=== PATIENT | male | born 1950 | race African-American/Black ===

== ENCOUNTER 2024-11-25 17:27 | Inpatient (IN) | payer MEDICARE, MEDICAID, SELFPAY ==
[2024-11-25] VITALS (10 sets, daily range): BP systolic 71–108; BP diastolic 41–67; PULSE 58–105; RESP 16–18; TEMP 36.4–36.8; O2SAT 98–100; BMI 21.3
--- NOTE | ~2024-11-25 | CT_ITS ---
CLINICAL HISTORY: unexplained persis hypotension, poor urine output CT abdomen and pelvis with contrast Comparison: None Findings: CT abdomen: Please refer to the patient's separately dictated CT of the chest for information regarding infiltrates within the lingula and bilateral lower lobes. 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 No other fractures identified. Scattered hypodensities within the liver likely calcification measuring up to 9 mm in size. No solid hepatic mass lesion identified. Main portal vein is patent. Innumerable calcified granulomas within the spleen. No discrete pancreatic mass is seen. Adrenal glands and kidneys are unremarkable for acute findings. Moderate fluid distention of the stomach. Hyperenhancement of the gastric mucosa. Fluid-filled loops of small bowel are seen throughout the abdomen and pelvis, especially within the left midabdomen. No free air. CT pelvis: No findings of appendicitis. Moderate stool throughout the colon. No colonic wall thickening or pericolonic inflammatory stranding. No free fluid or free air. IMPRESSION: 1. Negative CT of the appendix. 2. Fluid distention of the stomach with fluid-filled loops of small bowel are frequently seen with infectious/inflammatory gastroenteritis. This document has been electronically signed by: Gavino Fernández MD on 11/26/2024 01:48:48
--- NOTE | ~2024-11-25 | US_ITS ---
EXAMINATION: BILATERAL CAROTID ULTRASOUND WITH DOPPLER HISTORY: Syncope COMPARISON: There are no prior studies available for comparison. TECHNIQUE: Real time and Color and Spectral doppler ultrasonography of the carotid and vertebral arteries was performed in multiple planes. FINDINGS: Significant plaque is identified. The technologist reported and an arrhythmia. VERTEBRAL FLOW DIRECTION: Antegrade bilaterally. PEAK SYSTOLIC VELOCITIES (in cm/sec): RIGHT: CCA: Prox: 63.4 Dist: 32.9 ICA: Prox: 21.1 Mid: 45.0 Dist: 43.2 ICA/CCA Ratio: 0.71 ECA: 23.7 Peak ICA end diastolic velocity (EDV): 20.6 LEFT: CCA: Prox: 60.9 Dist: 41.3 ICA: Prox: 16.9 Mid: 47.8 Dist: 79.0 ICA/CCA Ratio: 1.30 ECA: 20.8 Peak ICA end diastolic velocity (EDV): 36.0 US/US carotid duplex BI IMPRESSION: Possible cardiac arrhythmia. Correlation with EKG is recommended. Unremarkable ultrasound of the carotid arteries. Electronically signed by: Fabrizio Pollard MD 11/26/2024 08:26 AM EDT
--- NOTE | ~2024-11-25 | CT_ITS ---
CLINICAL HISTORY: Unexplained hypotension, hx of PEs CT angiography chest with contrast. MIP postprocessing. Comparison: CR - XR CHEST 1V - 11/25/24 17:40 EDT Findings: There is appropriate contrast opacification of the main, lobar, and segmental pulmonary arteries. No filling defects identified to suggest pulmonary embolism. Thoracic aorta is nonaneurysmal. Mild mcdaniel chamber cardiac dilation. No pathologically enlarged mediastinal, hilar, or axillary lymph nodes. There are areas of consolidation within the dependent portion of the lingula and within the lower lobes bilaterally, [id number]. No pleural effusion or pneumothorax. 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 No acute bony lesions. IMPRESSION: 1. No pulmonary embolus. 2. No acute infiltrate. This document has been electronically signed by: Gavino Fernández MD on 11/26/2024 01:45:22
--- NOTE | ~2024-11-25 | XR_ITS ---
CLINICAL HISTORY: loc 1 view chest x-ray Comparison: None Findings: The lungs are clear. Normal size heart. No acute fracture. IMPRESSION: 1. No acute findings. This document has been electronically signed by: Brodie Cutler MD on 11/25/2024 18:09:39
--- NOTE | 2024-11-25 17:36 | ECG_ITS ---
Test Reason : SYNCOPE Blood Pressure : */* mmHG Vent. Rate : 106 BPM Atrial Rate : 106 BPM P-R Int : 130 ms QRS Dur : 154 ms QT Int : 406 ms P-R-T Axes : * -28 143 degrees QTcB Int : 539 ms Sinus tachycardia Left bundle branch block Abnormal ECG No previous ECGs available Referred By: Marilynn Liz Electronically Signed By: STEPHANIE CALI MD
--- NOTE | 2024-11-25 18:07 | ED.SYNCOPE ---
HPI - Syncope General Chief Complaint: Syncope Stated Complaint: from snf, loc during bowel movement, awake now Time Seen by Provider: 11/25/24 17:38 Source: patient and EMS Mode of arrival: EMS Limitations: no limitations History of Present Illness ED Provider: sloan durán np HPI narrative: Patient is a 74 year old male who presents emergency department via EMS coming from [facility] at [place] for evaluation of a syncopal episode while having a bowel movement witnessed by staff at the facility He is pleaseantly confused, answering some questions appropriately, follows some commands correctly. Per staff to EMS his mentation is currently at baseline. He arrives hypotensive 86/41, initial nursing vital signs indicate a bradycardia of 58, however on telemetry as well as on ECG he is mildly tachycardic with rate 100-110. Patient denies headache, dizziness, chest pain, shortness of breath, nausea, vomiting,, numbness or tingling of the extremities, constipation, recent diarrhea, urinary symptoms Related Data Home Medications ?Medication ?Instructions ?Recorded ?Confirmed acetaminophen 325 mg tablet 650 mg PO Q6H PRN Pain 11/26/24 11/26/24 albuterol sulfate 90 mcg/actuation 2 puff inhalation Q4H PRN 11/26/24 11/26/24 aerosol inhaler Shortness Of Breath Or Wheezing apixaban 5 mg tablet (Eliquis) 5 mg PO BID 11/26/24 11/26/24 bisacodyl 10 mg rectal suppository 10 mg ID DAILY PRN Constipation 11/26/24 11/26/24 digoxin 125 mcg (0.125 mg) tablet 125 mcg PO DAILY 11/26/24 11/26/24 magnesium hydroxide 400 mg/5 mL 30 ml PO DAILY PRN Constipation 11/26/24 11/26/24 oral suspension (Milk of Magnesia) metoprolol succinate 100 mg 100 mg PO DAILY 11/26/24 11/26/24 tablet,extended release 24 hr mirtazapine 15 mg tablet 15 mg PO BEDTIME 11/26/24 11/26/24 polyethylene glycol 3350 17 17 g PO DAILY PRN Constipation 11/26/24 11/26/24 gram/dose oral powder sennosides 8.6 mg tablet (senna) 8.6 mg PO BID 11/26/24 11/26/24 sodium phosphates 19 gram-7 118 ml ID DAILY PRN Constipation 11/26/24 11/26/24 gram/118 mL enema (Fleet Enema) Allergies Allergy/AdvReac Type Severity Reaction Status Date / Time No Known Allergies Allergy Verified 11/25/24 17:42 Review of Systems Review of Systems: Yes all other systems are reviewed and are negative [facility] Past Medical History Attestation statement: The following information was validated with the patient. Source: old records reviewed Medical History (Updated 11/26/24 @ 04:15 by KENDAL Newton) Homelessness Unexplained weight loss Femoral vein, deep venous thrombosis Left ventricular mural thrombus Pulmonary embolism Syncope Hypotension Cardiomyopathy, nonischemic Atrial flutter Diabetes 1.5, managed as type 2 Social History Social History (Updated 11/26/24 @ 04:17 by KENDAL Newton) Patient Tobacco Use Status: Former Tobacco user Smoked in Last 30 Days: Yes Use of substances other than those prescribed or required for medical reasons: No Advance Directives: No Advance Directives Information Provided: Yes Recently lost weight without trying: Yes How much weight loss: 34pounds or more Nutrition Risks: Dental problems Visits dentist regularly: No Poor oral hygiene: Yes service: No Current occupational status: retired Cognitive needs: Yes Hearing needs: No Vision needs: No Physical Exam Vital Signs: Vital Signs: Last Vital Signs Temp 97.8 F 11/26/24 06:38 Pulse 69 11/26/24 06:38 Resp 17 11/26/24 06:38 BP 111/91 H 11/26/24 06:38 Pulse Ox 99 11/26/24 06:38 O2 Del Method Room Air 11/26/24 06:38 BMI result Body Mass Index 21.3 Appearance: Alert.? Oriented to person Disoriented to place and time. No acute distress.?Normal affect. Eyes: Pupils equal, round and reactive to light. Scleral icterus.? EOMI. No nystagmus. ENT: Pharynx normal.?? Neck: Normal inspection.? Neck supple.??Full range of motion. No rigidity. CVS: Heart sounds normal. Normal heart rate and rhythm.? Pulses normal.?? Respiratory: No respiratory distress.? Lung sounds clear to auscultation bilaterally?? Abdomen: Soft and non-tender. Normoactive bowel sounds. Skin: Skin warm and dry.? Normal skin color.? ? Extremities: No lower extremity edema.? Neuro: Moves all extremities spontaneously. Course Reevaluation(s) Reevaluation #1: After receiving IV fluids, BP maintaining at 88/53 pulse of 100 he is afebrile, no respiratory distress. CBC is without leukocytosis, has a mild normocytic anemia that does not meet transfusion criteria, no thrombocytopenia. No significant electrolyte derangement. No MATTHEW. Lactic acid has resulted at 3.0, sepsis bolus occlusion fallen completed secondary to history of ischemic cardiomyopathy with low EF. LFTs unremarkable. High sensitive troponin within normal range. Viral serologies are negative. Chest x-ray without evidence of pneumonia or pleural effusions. Urinalysis is pending at this time. Digoxin level is pending. Repeat lactic acid is pending. Patient will be signed out to my attending Dr. Medina Time: 20:51 Reevaluation #2: Dr. Medina: I assumed care of this patient at change of shift from the nurse practitioner. The patient is a 74-year-old male who has been living at [facility] nursing [facility] for about a month after several hospitalizations at [facility]. Most of those hospitalizations were for hypotension. He has a nonischemic cardiomyopathy with a poor ejection fraction and atrial flutter. We were unable to get any significant information from [facility] regarding his baseline blood pressures or just about anything else about his stay at the facility. The patient's digoxin level is undetectable which raises a question of whether he is receiving this medication. In any event the patient was here after a syncopal episode that occurred when he was having a bowel movement. This was a witnessed episode. Staff was standing by and there was no injury. He was hypotensive. He was hypotensive here but he had no complaints. He looked quite well other than his low blood pressures. He denies headache, chest pain, abdominal pain, or any other symptoms. Although there is no complaint to suggest an infectious process and although he was not febrile, given his hypotension blood cultures, and a lactate, an empiric antibiotics were given. His lactate was 3.0. He received Zosyn and IV fluids. A repeat lactate was normal. He does not have an elevated white blood count. He has a an only mildly elevated CRP. The patient was observed over a course of several hours and ultimately we also obtained a CT pulmonary angiogram and a CT of the abdomen and pelvis. There was no pulmonary embolism. The CT of the chest suggested some areas of consolidation but the overall report indicated no acute infiltrate. No septic process in the abdomen. The patient was given IV fluids for borderline low blood pressures over many hours.. Ultimately the patient's blood pressure seemed to stabilize. Given that he was having problems with hypotension at [facility] and given that his blood pressures has been low but he has seemed otherwise asymptomatic I have also given him a dose of midodrine. He will be admitted to the hospitalist service. Medications Administered Generic Name Dose Route Start Last Admin Trade Name Freq PRN Reason Stop Dose Admin Enoxaparin Sodium 40 mg 11/26/24 03:00 11/26/24 03:37 Enoxaparin Sodium 40 Mg/0.4 Ml Syringe SUBCUT 40 mg Q24H SVETA Administration Piperacillin Sod/Tazobactam 100 mls @ 200 mls/hr 11/26/24 03:00 11/26/24 04:40 Sod 4.5 gm/ Sodium Chloride IV Infused Q8H SVETA Infusion Insulin Human Lispro 0 unit 11/26/24 07:30 11/26/24 08:09 Insulin Lispro 100 Unit/Ml 3 Ml Vial SUBCUT Not Given QIDACHS [facility] Protocol Omeprazole 20 mg 11/26/24 06:30 11/26/24 06:26 Omeprazole 20 Mg Capsule.Dr PO 20 mg DAILY@0630 SVETA Administration Sodium Chloride 3 ml 11/26/24 08:00 11/26/24 07:58 0.9 % Sodium Chloride Flush 3 Ml Syringe IVFLUSH 3 ml QSHIFT SVETA Administration Discontinued Medications Generic Name Dose Route Start Last Admin Trade Name Freq PRN Reason Stop Dose Admin Piperacillin Sod/Tazobactam 100 mls @ 200 mls/hr 11/25/24 18:14 11/25/24 19:28 Sod 4.5 gm/ Sodium Chloride IV 11/25/24 18:43 Infused ONCE ONE Infusion Sodium Chloride 500 mls @ 999 mls/hr 11/25/24 19:15 11/25/24 19:43 Ns IV 11/25/24 19:45 Infused .Q31M SVETA Infusion Lactated Ringer's 1,000 mls @ 999 mls/hr 11/25/24 21:30 11/25/24 23:05 Lr IV 11/25/24 22:30 Infused .Q1H1M SVETA Infusion Lactated Ringer's 500 mls @ 999 mls/hr 11/25/24 23:30 11/26/24 00:23 Lr IV 11/26/24 00:00 Infused .Q31M SVETA Infusion Lactated Ringer's 500 mls @ 999 mls/hr 11/26/24 02:45 11/26/24 03:36 Lr IV 11/26/24 03:15 Infused .Q31M SVETA Infusion Magnesium Sulfate 2 gm in 50 mls @ 25 mls/hr 11/26/24 03:55 11/26/24 06:27 Magnesium Sulfate/H2o IV 11/26/24 05:54 Infused ONCE ONE Infusion Iohexol 85 ml 11/26/24 00:55 11/26/24 00:56 Iohexol 350 Mg/Ml 100 Ml Infus..Btl IV 11/26/24 00:56 85 ml ONCE ONE Administration Midodrine 10 mg 11/26/24 02:46 11/26/24 03:36 Midodrine Hcl 10 Mg Tablet PO 11/26/24 02:47 10 mg ONCE ONE Administration Medical Decision Making Medical Decision Making MDM Narrative: Patient is a 74 year old male with past medical history of atrial flutter, nonischemic cardiomyopathy with LVEF 10-15%, LV thrombus, pulmonary embolism, DVT anticoagulated on Eliquis, hypertension, hyperlipidemia, diabetes mellitus, COPD who presents emergency department from [facility] for syncope during episode of bowel movement as per HPI. He has a grossly negative review of symptoms when asked, he offers no physical complaints, he is disoriented to place and time. I discussed this case with my attending Dr. Maureen Yoon, expressing concern for his hypotension tachycardia, there was no overt sign of infectious etiology however will obtain blood cultures and lactic acid, was prophylactic antibiotics. Patient did receive 500 mL normal saline pre-hospital, had concern about administering additional IVF given history of cardiomyopathy, and advisement from my attending Dr. Medina, patient will receive an additional 500 mL normal saline. Will obtain CBC to evaluate for leukocytosis/ anemia, CMP and lipase to evaluate for abnormal electrolytes /abnormal renal function/ abnormal hepatic/biliary function, EKG and troponin to evaluate for ischemia/ACS. Chest x-ray to evaluate for consolidation/ infiltrate/ mass/ pulmonary congestion and Urinalysis. [facility], admission 10/15/2024-10/27/2024 - presented there for presumed syncope EMS found him to be diaphoretic arrived to their ED tachycardic and hypoglycemic EKG with atrial flutter underlying left bundle-branch block, prior echocardiogram indicating severe biventricular dysfunction with evidence of a cold thrombus moderate to severe mitral regurgitation and moderate to severe tricuspid regurgitation with moderate pulmonary arterial hypertension, he was managed with rate control medication, had transitioned him initially from digoxin to amiodarone but due to elevation in transaminases amiodarone discontinued and restarted again on digoxin. He was found during that state she not have capacity to make complex medical decisions, healthcare proxy was invoked. Differential Diagnosis Differential Diagnoses: The differential diagnosis associated with the presentation includes (See narrative above) Admission/Observation Consideration of admission/observation: Escalation of care including admission/observation considered (See narrative above) Lab Data MDM Lab Attestation statement: I reviewed the patient's lab results. (See course narrative) 11/25/24 18:11 11/25/24 18:11 Labs: Lab Results 11/25/24 11/25/24 11/25/24 Range/Units 18:11 18:19 21:28 WBC 8.5 (4.8-10.8) X10*3/uL RBC 3.85 L (4.60-5.80) X10*6/uL Hgb 10.7 L (14.0-18.0) g/dl Hct 33.3 L (42.0-52.0) % MCV 86.5 (80.0-98.0) fL MCH 27.8 (27.0-33.0) pg MCHC 32.1 (31.0-36.0) g/dl RDW 15.9 (11.0-16.0) % Plt Count 221 (160-400) X10*3/uL MPV 9.2 L (9.4-12.4) fL Immature Gran % (Auto) 0.4 (0.0-0.4) % Neut % (Auto) 73.6 H (45-73) % Lymph % (Auto) 19.2 L (20-40) % [place] % (Auto) 5.6 (2-11) % Eos % (Auto) 0.8 (0-4) % Baso % (Auto) 0.4 (0-2) % Lymph # (Auto) 1.6 (1.2-4.9) X10*3/uL [place] # (Auto) 0.5 (0.1-1.2) X10*3/uL Eos # (Auto) 0.1 (0.0-0.4) X10*3/uL Baso # (Auto) 0.0 (0.0-0.2) X10*3/uL Abs Immat Gran (auto) 0.03 (0.00-0.03) X10*3/uL Absolute Neuts (auto) 6.2 (2.0-8.3) x10*3/uL Absolute Nucleated RBC 0.000 (0.0-0.012) X10*3/uL Nucleated RBC % (auto) 0.0 (0.0-0.2) /100WBC PT 19.5 H (10.9-12.4) SEC INR 1.7 H (0.9-1.1) Sodium 139 (135-145) mmol/L Potassium 4.0 (3.3-5.1) mmol/L Chloride 109 H (96-108) mmol/L Carbon Dioxide 23 (22-29) mmol/L Anion Gap 11 L (12-20) BUN 31 H (9-16) mg/dL Creatinine 1.00 (0.5-1.4) mg/dL Estim Creat Clear Calc 67.1 Estimated GFR > 60 Random Glucose 102 (60-115) mg/dL Lactic Acid 3.0 H* (0.5-2.0) mmol/L Lactic Acid F/U @ 2Hr 1.8 (0.5-2.0) mmol/L Calcium 8.6 (8.4-10.2) mg/dL Magnesium 1.7 (1.6-2.6) mg/dL Total Bilirubin 0.7 (0.0-1.0) mg/dL Direct Bilirubin 0.3 (0.0-0.5) mg/dL AST 27 (5-37) U/L ALT 22 (0-40) U/L Alkaline Phosphatase 93 (39-117) U/L Troponin I High Sens 11.5 (<3.5-35.0) ng/L C-Reactive Protein 2.46 H (< or = 0.50) mg/dL Total Protein 5.9 L (6.5-8.0) g/dL Albumin 3.0 L (3.5-5.0) g/dL Lipase 9 (8-78) U/L Urine Color Urine Appearance Urine pH (5.0-9.0) Ur Specific Sunflower (1.005-1.025) Urine Protein (Neg-Trace) mg/dL Urine Glucose (UA) (Negative) mg/dL Urine Ketones (Negative) mg/dL Urine Blood (Negative) Urine Nitrite (Negative) Ur Leukocyte Esterase (Negative) Urine RBC (0-2) /HPF Urine WBC (0-5) /HPF Ur Squamous Epith Cells (0-2) /HPF Urine Bacteria (None Seen) Hyaline Casts (0-2) /LPF Digoxin < 0.2 L (0.8-2.0) ng/mL Influenza Type A (PCR) NEGATIVE (Negative) Influenza Type B (PCR) NEGATIVE (Negative) RSV RNA Qual (PCR) NEGATIVE (Negative) SARS-CoV-2 RNA (RT-PCR) NEGATIVE (Negative) 11/25/24 11/26/24 Range/Units 23:05 02:00 WBC (4.8-10.8) X10*3/uL RBC (4.60-5.80) X10*6/uL Hgb (14.0-18.0) g/dl Hct (42.0-52.0) % MCV (80.0-98.0) fL MCH (27.0-33.0) pg MCHC (31.0-36.0) g/dl RDW (11.0-16.0) % Plt Count (160-400) X10*3/uL MPV (9.4-12.4) fL Immature Gran % (Auto) (0.0-0.4) % Neut % (Auto) (45-73) % Lymph % (Auto) (20-40) % [place] % (Auto) (2-11) % Eos % (Auto) (0-4) % Baso % (Auto) (0-2) % Lymph # (Auto) (1.2-4.9) X10*3/uL [place] # (Auto) (0.1-1.2) X10*3/uL Eos # (Auto) (0.0-0.4) X10*3/uL Baso # (Auto) (0.0-0.2) X10*3/uL Abs Immat Gran (auto) (0.00-0.03) X10*3/uL Absolute Neuts (auto) (2.0-8.3) x10*3/uL Absolute Nucleated RBC (0.0-0.012) X10*3/uL Nucleated RBC % (auto) (0.0-0.2) /100WBC PT (10.9-12.4) SEC INR (0.9-1.1) Sodium (135-145) mmol/L Potassium (3.3-5.1) mmol/L Chloride (96-108) mmol/L Carbon Dioxide (22-29) mmol/L Anion Gap (12-20) BUN (9-16) mg/dL Creatinine (0.5-1.4) mg/dL Estim Creat Clear Calc Estimated GFR Random Glucose (60-115) mg/dL Lactic Acid (0.5-2.0) mmol/L Lactic Acid F/U @ 2Hr (0.5-2.0) mmol/L Calcium (8.4-10.2) mg/dL Magnesium (1.6-2.6) mg/dL Total Bilirubin (0.0-1.0) mg/dL Direct Bilirubin (0.0-0.5) mg/dL AST (5-37) U/L ALT (0-40) U/L Alkaline Phosphatase (39-117) U/L Troponin I High Sens 10.6 (<3.5-35.0) ng/L C-Reactive Protein (< or = 0.50) mg/dL Total Protein (6.5-8.0) g/dL Albumin (3.5-5.0) g/dL Lipase (8-78) U/L Urine Color Dark Yellow Urine Appearance Clear Urine pH 5.5 (5.0-9.0) Ur Specific Sunflower >= 1.030 H (1.005-1.025) Urine Protein 30 (1+) H (Neg-Trace) mg/dL Urine Glucose (UA) Negative (Negative) mg/dL Urine Ketones Trace (Negative) mg/dL Urine Blood Negative (Negative) Urine Nitrite Negative (Negative) Ur Leukocyte Esterase Small (1+) H (Negative) Urine RBC 0-2 (0-2) /HPF Urine WBC 11-20 H (0-5) /HPF Ur Squamous Epith Cells 0-2 (0-2) /HPF Urine Bacteria None Seen (None Seen) Hyaline Casts 3-5 (0-2) /LPF Digoxin (0.8-2.0) ng/mL Influenza Type A (PCR) (Negative) Influenza Type B (PCR) (Negative) RSV RNA Qual (PCR) (Negative) SARS-CoV-2 RNA (RT-PCR) (Negative) Independent Interpretation I performed an independent interpretation of an: EKG (Sinus tachycardia with left bundle-branch block, ventricular rate of 106, normal BHAKTI) Radiology Impression Discussion of test interpretation with radiology: I have reviewed the radiologist's reading. Radiologist Impression: 1 view chest x-ray Comparison: None Findings: The lungs are clear. Normal size heart. No acute fracture. IMPRESSION: 1. No acute findings. Independent Historian Clinical information obtained from an independent historian. History obtained from or confirmed by: EMS External Record Review External record reviewed: Inpatient record (See narrative above) and Outpatient record (See narrative above) Chronic Conditions Patient?s care impacted by: Other (See narrative above) Critical Care Time Critical Care Time Critical Care Time: Yes Total Critical Care Time: 35 Attestation: The patient was critically ill with a high probability of imminent or life-threatening deterioration. ?I spent greater than 30 minutes of discontinuous time evaluating the patient, delivering critical care at the bedside, discussing evaluating data with consultants. ?Critical care time does not include time spent performing separately billable procedures or teaching. ?Time spent performing critical care with 35 minutes. Discharge Plan Discharge Clinical Impression: Syncope, Hypotension, Cardiomyopathy, nonischemic, Atrial flutter Patient Disposition: Admitted As Inpatient Interventions: Admission Worksheet (ED) Last Done: 11/26/24 07:02 Sepsis Bolus Exclusion Sepsis Bolus Exclusion CHF/Renal Failure This patient met severe sepsis criteria due to the following condition(s):: Hypotension In my clinical judgement the administration of 30 ml/kg of crystalloid would be detrimental to this patient due to the patient's following conditions:: Concern for fluid overload (Ischemic cardiomyopathy with EF 10-15%) Replace the 30 mls/kg with (Zero amount not acceptable and all fluids for severe sepsis must be given at GREATER than 125 mls/hr) Crystalloids amount given in mls: (rate must be at least 150cc/hr): 500 Colloids amount given in mls:: 0
[2024-11-25 18:16] LABS: MANUAL DIFF FLAG NO
[2024-11-25 18:18] LABS: Basophils Percent Auto 0.4 % (0-2); Eosinophils Absolute Auto 0.1 X10*3/uL (0.0-0.4); Eosinophils Percent Auto 0.8 % (0-4); Hematocrit 33.3 % (42.0-52.0); Hemoglobin 10.7 g/dl (14.0-18.0); Imm Gran Abs Auto 0.03 X10*3/uL (0.00-0.03); Imm Gran Pct Auto 0.4 % (0.0-0.4); Lymphocytes Absolute Auto 1.6 X10*3/uL (1.2-4.9); Lymphocytes Percent Auto 19.2 % (20-40); Mean Corpuscular HGB Conc 32.1 g/dl (31.0-36.0); Mean Corpuscular Hemoglobin 27.8 pg (27.0-33.0); Mean Corpuscular Volume 86.5 fL (80.0-98.0); Mean Platelet Volume 9.2 fL (9.4-12.4); Monocytes Absolute Auto 0.5 X10*3/uL (0.1-1.2); Monocytes Percent Auto 5.6 % (2-11); Neutrophils Absolute Auto 6.2 x10*3/uL (2.0-8.3); Neutrophils Percent Auto 73.6 % (45-73); Platelet Count 221 X10*3/uL (160-400); Red Blood Count 3.85 X10*6/uL (4.60-5.80); Red Cell Distribution Width 15.9 % (11.0-16.0); White Blood Count 8.5 X10*3/uL (4.8-10.8)
[2024-11-25 18:24] LABS: INTERNATIONAL NORM RATIO 1.7 (0.9-1.1); Prothrombin Time 19.5 SEC (10.9-12.4)
[2024-11-25 18:32] LABS: Alanine Aminotransferase 22 U/L (0-40); Alkaline Phosphatase 93 U/L (39-117); Anion Gap 11 (12-20); Aspartate Amino Transferase 27 U/L (5-37); Bilirubin Direct 0.3 mg/dL (0.0-0.5); Bilirubin Total 0.7 mg/dL (0.0-1.0); Blood Urea Nitrogen 31 mg/dL (9-16); Calcium 8.6 mg/dL (8.4-10.2); Carbon Dioxide 23 mmol/L (22-29); Chloride 109 mmol/L (96-108); Creatinine Clr Calc Pharmacy 67.1; Estimated Glomerular Filt Rate > 60; Glucose Random 102 mg/dL (60-115); Lipase 9 U/L (8-78); Magnesium 1.7 mg/dL (1.6-2.6); Sodium 139 mmol/L (135-145); Total Protein 5.9 g/dL (6.5-8.0)
[2024-11-25 18:39] LABS: Troponin-I High Sensitivity 11.5 ng/L (<3.5-35.0)
[2024-11-25] MEDS: Piperacillin Sodium/Tazobactam 4.5 GM in 0.9 % Sodium Chloride 100 ML IV (18:58)
[2024-11-25 18:59] LABS: Influenza A PCR NEGATIVE (Negative); Influenza B PCR NEGATIVE (Negative); Resp Syncy Virus RNA Qual PCR NEGATIVE (Negative); SARS COV2 PCR INHOUSE NEGATIVE (Negative)
--- NOTE | 2024-11-25 19:00 | PC.NURSE ---
this rn assumed care of pt, at bedside, states to wait on ortho vitals. rectal temp obtained, pressures remain low at this time, provider aware. antibiotics administering at this time
[2024-11-25] MEDS: 0.9 % Sodium Chloride 500 ML 999 ML IV (19:11)
[2024-11-25 19:16] LABS: C Reactive Protein 2.46 mg/dL (< or = 0.50)
[2024-11-25 20:25] LABS: Reflex Lactate? Lactic Acid Added
--- NOTE | 2024-11-25 21:09 | PC.NURSE ---
this rn contacted [facility] at this time, [facility] rn gave last set of vitals prior to fall - 101/81 and HR of 59. Kalia Alfonso aware
[2024-11-25] MEDS: Lactated Ringers 1,000 ML 999 ML IV (21:33)
[2024-11-25 21:48] LABS: Digoxin < 0.2 ng/mL (0.8-2.0); ~Lactic Acid-LAB USE ONLY 1.8 mmol/L (0.5-2.0)
--- NOTE | 2024-11-25 23:09 | PC.NURSE ---
straight cath administered for urine collection. Pt tolerated well. 10 mL output. urine sample sent to lab
[2024-11-25 23:12] LABS: Appearance Urine Clear; Color Urine Dark Yellow; Glucose Urine UA Negative (Negative); Leukocyte Esterase Urine Small (1+) (Negative); Nitrite Urine Negative (Negative); PH 5.5 (5.0-9.0); Specific Gravity - Urine >= 1.030 (1.005-1.025); UMIC TRIGGER UACC YES; Urine Blood Negative (Negative); Urine Ketones Trace mg/dL (Negative); Urine Protein 30 (1+) mg/dL (Neg-Trace)
[2024-11-25] MEDS: Lactated Ringers 500 ML 999 ML IV (23:33)
[2024-11-26] VITALS (22 sets, daily range): BP systolic 68–112; BP diastolic 44–91; PULSE 63–88; RESP 11–20; TEMP 36.4–37.1; O2SAT 93–100; BMI 23.6; BMI 23.2; BMI 23.5
[2024-11-26 00:20] LABS: Bacteria Urine None Seen (None Seen); RBC Urine 0-2 /HPF (0-2); Squamous Epithelial Cell Urine 0-2 /HPF (0-2); UACC Culture Trigger YES
[2024-11-26] MEDS: iohexoL 350 MG/ML 100 ML INFUS..BTL 85 ML IV (00:56)
[2024-11-26 02:27] LABS: Troponin-I High Sensitivity 10.6 ng/L (<3.5-35.0)
[2024-11-26] MEDS: Lactated Ringers 500 ML 999 ML IV ×2 (02:46→15:51)
--- NOTE | 2024-11-26 02:58 | P.HPHOSP_ITS ---
History of Present Illness Date of Service: 11/26/24 Attending physician on admission: Sahil Walden Chief Complaint: syncope Patient is a 74-year-old black male with past medical history syncope and recent hospitalizations at [facility], hypotension, hypoglycemia, nonischemic cardiomyopathy with an ejection fraction of 10-15%, atrial fibrillation/flutter, left ventricular mural thrombus, venous thromboembolism involving left femoral vein, left bundle branch block, dehydration, NSTEMI, pulmonary embolism, [id number]-qmhjjciub diabetes type 2, unexplained weight loss, homelessness for 2 years, undiagnosed dementia was brought in by EMS from [facility] after a witnessed syncopal episode while patient was having a bowel movement. There was no hit to the head. When EMS arrived, patient was diaphoretic. Blood pressure 70/30. Patient was started on IV fluids. PT Continued with hypotension, that slowly improved with additional IVF's. EKG noted sinus tachycardia, heart rate 106 and QTC prolonged at 05:39. Blood glucose level 102 mg/dL. Lactate was 3.0. Patient had no abdominal symptoms. Patient did not have any diarrhea or nausea with vomiting. C-reactive protein 2.46. LFTs within normal limits. Troponin within normal limits 11.5 and then 10.6. Lipase 9. Chest CTA negative for PE. Patient did not present with hypoxia. There are areas of consolidation within the dependent portion of the lingula and within the lower lobes bilaterally, [id number]-right. No pleural effusion or pneumothorax. Radiologist's thinning indicates no acute infiltrate. Abdominal and pelvic CT negative for acute appendicitis, but positive for fluid distention of the stomach with fluid-filled loops of small bowel often associated with infectious or inflammatory gastroenteritis. Patient was started on Zosyn in the emergency department. Patient received a total of 2-1/2 L of IV fluid. Lactate went from 3 to 1.8. UA positive for leukocyte esterase and WBCs but negative for nitrites and bacteria. Blood cultures pending. Pt did receive 10 mgs of midodrine in ED for ongoing hypotension in the 90's. Initially was reported in the emergency department that patient initially was confused and unable to respond. Upon interviewing patient for admission, patient is sitting upright watching TV, was alert and orientated to [facility], and but not to day of the week. Patient thought he had been brought in from a usp. Patient states he has been homeless for at least the last 2 years. 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 Patient could no longer afford his rent and lost his home and this is outpatient became homeless. Patient is currently collecting social security income and is not on disability. Patient has very poor recall of recent hospitalizations at [facility] but stated he received great treatment there. Patient is not able to elaborate on why patient was in the hospital. Patient believes he did see a new primary care physician on [facility] but unable to confirm any of this information. Pt denies hx of ETOH abuse, illicit drug use or marijuana use. Pt does continues to smoke when able, 4-6 cigarettes per day. 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 Patient did undergo a capacity examination last admission at [facility] and was found to not have capacity at the time. But patient was also able to follow the healthcare proxy. Patient states he has 2 sons in the local area that he is estranged from. Patient does have Sander Royal at phone number [phone] listed as his emergency contact. Overall timeline provided by ED provider is as follows: October 02 through October 09 patient admitted to [facility] diagnosed with NSTEMI, DVT, LBBB, dehydration, PE and atrial fibrillation. Patient was discharged, homeless possibly to a usp. October 11 - October 13, patient readmitted to [facility] for hypotension. Patient was then discharged. October 15 to October 27 patient readmitted to [facility] diagnosed with nonischemic cardiomyopathy, AFib, a flutter, LV mural thrombus, left femoral vein thrombus and was discharged to [facility], nursing facility. It is not clear if patient has been admitted to [place] [facility] for rehab or for long-term care. Pt's current medications are listed as apixaban, digoxin, metoprolol, and albuterol. Digoxin level tests in the ED and is subtherapeutic. It is not clear that patient has been taking digoxin. Per patient's report he has been only taking 2 medications total. Review of Systems 2 Review of Systems: Patient currently denies any chest pain, nausea, vomiting, diarrhea or constipation. Patient denies any headache or visual changes. Patient is offered referred to high school in regards to his medical history and states he was told he had an irregular heartbeat when he was in high school. Patient was still allowed to play sports. Yes all other systems are reviewed and are negative [facility] Medical History (Updated 11/26/24 @ 04:15 by KENDAL Newton) Homelessness Unexplained weight loss Femoral vein, deep venous thrombosis Left ventricular mural thrombus Pulmonary embolism Syncope Hypotension Cardiomyopathy, nonischemic Atrial flutter Diabetes 1.5, managed as type 2 Cognitive capacity: Alert and orientated x3, poor recall regarding short-term and long-term memory. Patient offering referred high school in regards to his medical history and what he experienced in both high school and college. Functional capacity: independent ambulation Pertinent family history: Mother in her 80s from complications related to diabetes Father in his 70s from a concussion after being mugged Social History (Updated 11/26/24 @ 04:17 by KENDAL Newton) Patient Tobacco Use Status: Former Tobacco user service: No Current occupational status: retired Cognitive needs: Yes Hearing needs: No Vision needs: No Ebola Risk: Travel/Contact With Anyone From Affected Area/s: No Has Patient Experienced Ebola Symptoms: No Meds Allergies Allergy/AdvReac Type Severity Reaction Status Date / Time No Known Allergies Allergy Verified 11/25/24 17:42 Active Medications: Current Medications Acetaminophen (Acetaminophen 325 Mg Tablet) 650 mg PO Q6H PRN PRN Reason: Pain, Mild 1-3,fever,headache Albuterol/Ipratropium (Albuterol/Iprat 2.5/0.5mg 3 Ml Ampul.Neb) 3 ml INHALE Q4H PRN PRN Reason: Shortness of Breath/Wheezing Calcium Carbonate (Calcium Carbonate 750 Mg Tab.Chew) 750 mg PO Q4H PRN PRN Reason: Heartburn Enoxaparin Sodium (Enoxaparin Sodium 40 Mg/0.4 Ml Syringe) 40 mg SUBCUT Q24H SVETA Lactated Ringer's (Lr) 500 mls @ 999 mls/hr IV .Q31M SVETA Stop: 11/26/24 03:15 Last Admin: 11/26/24 02:46 Dose: 999 mls/hr Piperacillin Sod/Tazobactam (Sod 4.5 gm/ Sodium Chloride) 100 mls @ 200 mls/hr IV Q8H SVETA Magnesium Hydroxide (Milk Of Magnesia 30 Ml Oral.Susp) 30 ml PO DAILY PRN PRN Reason: Constipation Melatonin (Melatonin 3 Mg Tablet) 6 mg PO BEDTIME PRN PRN Reason: Insomnia Ondansetron HCl (Ondansetron Hcl 4 Mg/2 Ml Vial) 4 mg IVPUSH Q8H PRN PRN Reason: Nausea and Vomiting Polyethylene Glycol (Polyethylene Glycol 3350 17 Gm Powd.Pack) 17 gm PO DAILY PRN PRN Reason: Constipation Senna (Sennosides 8.6 Mg Tablet) 17.2 mg PO BEDTIME SVETA Sodium Chloride (0.9 % Sodium Chloride Flush 3 Ml Syringe) 3 ml IVFLUSH QSHIFT SVETA Physical Exam 2 Vital Signs and Narrative: Vital Signs: Last Vital Signs Temp 98.3 F 11/25/24 18:59 Pulse 69 11/26/24 02:06 Resp 16 11/26/24 02:06 BP 93/68 11/26/24 02:52 Pulse Ox 100 11/25/24 23:02 O2 Del Method Room Air 11/25/24 23:02 BMI result Body Mass Index 21.3 Alert and orientated X3, poor short and long-term memory, able to provide some history Neuro: CN II-X11 intact, no deficits, visual acuity intact EYES: PERRLA, EOM intact, exophthalmos, sclera nonicteric ENT: hearing intact, no issues with swallowing, uvula midline, lips moist, nares patent no epistaxis, many missing teeth Cardiac: S1 S2 RRR, no murmur, no JVD, no edema in Lower ext Pulmonary: lungs diminished bilaterally Abdominal: BS active in all 4 quadrants, no guarding, tenderness, rebounding MSK: strength 4/5 upper and lower extremities : no CVA tenderness no bladder distension Extremities: no edema in lower extremities, PT and DP pulses palpable +2 Psych: mood stable, judgement and insight fair Skin: chronic xerosis BLE's, no open wounds found Results Labs 11/25/24 18:11 11/25/24 18:11 Labs: Laboratory Results - last 24 hr 11/25/24 11/25/24 11/25/24 18:11 18:19 21:28 MCV 86.5 MCH 27.8 MCHC 32.1 RDW 15.9 Plt Count 221 MPV 9.2 L Immature Gran % (Auto) 0.4 Neut % (Auto) 73.6 H Lymph % (Auto) 19.2 L [place] % (Auto) 5.6 Eos % (Auto) 0.8 Baso % (Auto) 0.4 Lymph # (Auto) 1.6 [place] # (Auto) 0.5 Eos # (Auto) 0.1 Baso # (Auto) 0.0 Abs Immat Gran (auto) 0.03 Absolute Neuts (auto) 6.2 Absolute Nucleated RBC 0.000 Nucleated RBC % (auto) 0.0 PT 19.5 H INR 1.7 H Anion Gap 11 L Estim Creat Clear Calc 67.1 Estimated GFR > 60 Random Glucose 102 Lactic Acid 3.0 H* Lactic Acid F/U @ 2Hr 1.8 Calcium 8.6 Magnesium 1.7 Total Bilirubin 0.7 Direct Bilirubin 0.3 AST 27 ALT 22 Alkaline Phosphatase 93 Troponin I High Sens 11.5 C-Reactive Protein 2.46 H Total Protein 5.9 L Albumin 3.0 L Lipase 9 Urine Color Urine Appearance Urine pH Ur Specific [place] Urine Protein Urine Glucose (UA) Urine Ketones Urine Blood Urine Nitrite Ur Leukocyte Esterase Urine RBC Urine WBC Ur Squamous Epith Cells Urine Bacteria Hyaline Casts Digoxin < 0.2 L Influenza Type A (PCR) NEGATIVE Influenza Type B (PCR) NEGATIVE RSV RNA Qual (PCR) NEGATIVE SARS-CoV-2 RNA (RT-PCR) NEGATIVE 11/25/24 11/26/24 23:05 02:00 MCV MCH MCHC RDW Plt Count MPV Immature Gran % (Auto) Neut % (Auto) Lymph % (Auto) [place] % (Auto) Eos % (Auto) Baso % (Auto) Lymph # (Auto) [place] # (Auto) Eos # (Auto) Baso # (Auto) Abs Immat Gran (auto) Absolute Neuts (auto) Absolute Nucleated RBC Nucleated RBC % (auto) PT INR Anion Gap Estim Creat Clear Calc Estimated GFR Random Glucose Lactic Acid Lactic Acid F/U @ 2Hr Calcium Magnesium Total Bilirubin Direct Bilirubin AST ALT Alkaline Phosphatase Troponin I High Sens 10.6 C-Reactive Protein Total Protein Albumin Lipase Urine Color Dark Yellow Urine Appearance Clear Urine pH 5.5 Ur Specific [place] >= 1.030 H Urine Protein 30 (1+) H Urine Glucose (UA) Negative Urine Ketones Trace Urine Blood Negative Urine Nitrite Negative Ur Leukocyte Esterase Small (1+) H Urine RBC 0-2 Urine WBC 11-20 H Ur Squamous Epith Cells 0-2 Urine Bacteria None Seen Hyaline Casts 3-5 Digoxin Influenza Type A (PCR) Influenza Type B (PCR) RSV RNA Qual (PCR) SARS-CoV-2 RNA (RT-PCR) ECG Attestation: I personally reviewed and interpreted this ECG as follows: (initially ST 107, no ischemic changes, prolonged Qtc ) Prior ECG tracings: available for review Imaging Radiologist's Impressions: CTA Findings: There is appropriate contrast opacification of the main, lobar, and segmental pulmonary arteries. No filling defects identified to suggest pulmonary embolism. Thoracic aorta is nonaneurysmal. Mild mcdaniel chamber cardiac dilation. No pathologically enlarged mediastinal, hilar, or axillary lymph nodes. There are areas of consolidation within the dependent portion of the lingula and within the lower lobes bilaterally, [id number]-right. No pleural effusion or pneumothorax. 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 No acute bony lesions. IMPRESSION: 1. No pulmonary embolus. 2. No acute infiltrate. CT ABD PELVIS IMPRESSION: 1. Negative CT of the appendix. 2. Fluid distention of the stomach with fluid-filled loops of small bowel are frequently seen with infectious/inflammatory gastroenteritis. Assessment and Plan (1) Syncope: Qualifiers: Syncope type: vasovagal syncope Qualified Code(s): R55 - Syncope and collapse Status: Acute Plan Patient is a 74-year-old black male with past medical history syncope and recent hospitalizations at [facility], hypotension, hypoglycemia, nonischemic cardiomyopathy with an ejection fraction of 10-15%, atrial fibrillation/flutter, left ventricular mural thrombus, venous thromboembolism involving left femoral vein, left bundle branch block, dehydration, NSTEMI, pulmonary embolism, cqh-ryyjhvy-cqzfxnpmb diabetes type 2, unexplained weight loss, homelessness for 2 years, undiagnosed dementia experienced a witnessed syncopal episode while using the commode for BM. Patient has been [facility] recently for multiple medical problems including syncope and hypotension. Syncope, possibly vasovagal with recent hypotension, hypoglycemia, dehydration -Echo ordered, carotid dopplers -Cardiology consulted -Pt received midodrine in ED one time, 10 mgs -Ortthostatics ordered QS X3 -Telemetry -2.5 L of IVF completed -TEDS -Monitor blood sugars a.c. and HS Hypotension -Midodrine started in ED -Orthostatics ordered QS X3 -Continue midodrine if overall improvement Elevated Lactic Acid -Pt initially met sepsis criteria with tachycardia, hypotension and elevated LA -3.0 to 1.8 after 2.5L of fluid, no longer tachycardic and BP slowly improving -Possible source of infection, gastroenteritis and or B lower lobes consolidations but no acute infiltrate or hypoxia -Continue Zosyn -UA - small LE, 11-20 WBCs, no fever, no leukocytosis -BC pending Gastroenteritis -Patient currently asymptomatic, no antiemetic noting prolonged QTC -Continue Zosyn -Monitor for symptoms -GI consult not ordered on admission Recent Coagulopathy - PE, DVT, LV thrombus -Echo ordered -CTA neg PE -Continue Apixiban once med rec completed, pt has been compliant since DC from [facility] October 27 Aflutter/ AFIB -Currently sinus rhythm -Holding metoprolol due to hypotension -Telemetry -Apixiban once med rec completed -Once med rec completed continue anticoagulation unless contraindicated Prolonged QtC -QTC 539, repeat EKG in the a.m. -Mag 1.7, 2 g of Mag ordered, goal MG > 2.0 HFrEF/ NICM EF 10-15% -Patient presents euvolemic -Echo ordered -Daily weights, measure intake and output every 8 hours, low-sodium diet Poor memory/ recall, Dementia suspected, undiagnosed -OT for [place] requested -Consider neurology consult if indicated -Consider MRI Brain (please check with [facility] for recent diagnostics before ordering) -Check RPR, vitamin-B12, vitamin-D levels -CM ordered for review and pt asking for help to access more programs NIDDM II -SSI, ACHS BG levels -monitor for hypoglycemia Unexplained weight loss with known history of homelessness -Nutritional consultation -Daily weights -Glucerna supplementation ordered t.i.d. DVT prophylaxis: Apixaban once med rec is completed PPI prophylaxis: Omeprazole Full code status Med rec pending Quality Stroke Does the patient have a stroke diagnosis?: No Reason for No Anti-thrombotic by Day Two: N/A - Med Ordered VTE Prior VTE?: No VTE Risk Level:: Medical - moderate - high VTE Device Contraindication: N/A - Device Ordered VTE Drug Contraindication: N/A - Med Ordered
[2024-11-26] MEDS: Midodrine HCl 10 MG TABLET PO ×2 (03:36→18:13)
[2024-11-26] MEDS: Piperacillin Sodium/Tazobactam 4.5 GM in 0.9 % Sodium Chloride 100 ML IV ×3 (03:37→19:12)
[2024-11-26] MEDS: Enoxaparin Sodium 40 MG/0.4 ML SYRINGE SUBCUT (03:37)
--- NOTE | 2024-11-26 03:42 | PC.NURSE ---
hospitalist at bedside. PO medicated taken and tolerated well. Medicated per AUG.
[2024-11-26] MEDS: Magnesium Sulfate/H2O 2 GM/50 ML PIGGYBACK IV (04:22)
[2024-11-26] MEDS: Omeprazole 20 MG CAPSULE.DR PO (06:26)
--- NOTE | 2024-11-26 06:42 | PC.NURSE ---
this rn assisted pt with bed change, pt able to stand up at end of bed with no difficulties, denied dizziness and sob
--- NOTE | 2024-11-26 07:00 | CA_ITS ---
Transthoracic Echocardiogram Patient (Last, First, Middle): José Harrison, Gender: Male Date of : 1950 Age: 74 Procedure Date: 11/26/2024 Procedure Type: Transthoracic Echocardiogram Location: ER Height: 185.42 cm Weight: 73.03 kg BSA: 1.96 m2 Heart Rate: bpm BP: 111 / 91 mmHg Clinical Team Lead: GIAN Referring MD: Cristina Melo [facility] [place] Operator: Pascual Alvares MD Symptoms: syncope Study Quality: Adequate, contrast ECG Rhythm: Atrial flutter Conclusions: - 1. Moderately dilated left ventricle with severely reduced LV ejection fraction 20-25% 2. Biatrial enlargement, right greater than left 3. Mild mitral regurgitation 4. Upper limits of normal RV systolic pressure 5. No gross pericardial effusion Findings Procedure Information Contrast agent, definity, is being given per protocol without apparent complications. Left Ventricle Moderately increased left ventricular cavity size. There is normal left ventricular wall thickness. The left ventricular systolic function is severely decreased. The visually estimated ejection fraction is between 20 25%. There is paradoxical septal motion consistent with a left bundle branch block. Diastolic function is indeterminate on the basis of available data. Right Ventricle Mildly increased right ventricular cavity size. There is mildly decreased right ventricular systolic function. Atria The left atrium is moderately dilated. Interatrial shunt cannot be excluded. The right atrium is severely dilated. Aortic Valve There is mild calcification of the aortic valve. There is no aortic valve stenosis. There is no aortic valve regurgitation. Mitral Valve There is mild anterior and posterior mitral leaflet thickening. There is mild mitral valve regurgitation. There is no mitral valve stenosis. Pulmonic Valve The pulmonic valve is likely normal. There is trace pulmonic valve regurgitation. Tricuspid Valve There is mild tricuspid valve regurgitation. Normal right atrial pressure. There is no evidence of pulmonary hypertension. Great Vessels All visible segments of the aorta are normal in size. The pulmonary artery was not well visualized. Venous The inferior vena cava is normal in size. Pericardium/Pleural There is no evidence of pericardial effusion. Prior Study Comparison No prior study available for comparison. Measurements 2D Linear Measurements IVSd: 1.07 0.6-0.9/0.6-1.0 cm LVIDd: 6.14 3.9-5.3/4.2-5.9 cm LVIDd Index: 3.13 2.4-3.2/2.2-3.1 cm/m2 LVIDs: 5.45 2.0-3.6 cm LVPWd: 1.08 0.7-1.1 cm LA Diam: 4.10 2.7-3.8/3.0-4.0 cm LAIDs Index: 2.09 1.5-2.3 cm/m2 LV Mass: 351.78 67-162/88-224 g LV Mass Index: 179.48 43-95/49-115 g/m2 LVOT Diam: 2.50 3.0+(-)1.3 cm 2D Systolic Function EF 4C: 16.90 >55% EF 2C: 30.70 >55% EF BiP: 24.40 >55% Mitral Valve MV Pk E: 0.99 MV Decel Time: 170.00 E'Lateral: 6.83 E'Medial: 3.94 E/E' Med: 25.00 E/E' Lat: 14.40 PHT: 50.00 MVA PHT: 4.40 Decel [place]kin: 5.79 Aortic Valve AoV Pk Rosas: 1.11 AoV Mn Rosas: 0.78 AoV VTI: 0.18 AoV Pk Grad: 5.00 Aov Mn Grad: 3.00 TAMAR Cont.VTI: 2.93 LVOT LVOT Pk Rosas: 0.69 LVOT Mn Rosas: 0.48 LVOT VTI: 0.11 LVOT Pk Grad: 2.00 LVOT Mn Grad: 1.00 LVOT Diam: 2.50 LVOT Area: 4.91 Diastolic Function MV Pk E: 0.99 E'Medial: 3.94 E/E' Med: 25.00 E' Laterial: 6.83 E/E' Lat: 14.40 Right Ventricle TAPSE (mm): 15.50 TVS' Rosas: 7.97 Tricuspid Valve TR Pk Rosas: 3.02 TR Pk Grad: 36.00 RA Press: 3.00 RVSP: 39.00 Great Vessels Aorta Sinus of Valsalva: 3.68 2.0-3.5 cm Ao Asc: 3.00 2.1-3.4 cm Updated in Other Vendor System with Status of Final Pascual Alvares MD electronically signed on 11/27/2024 12:52:37 PM with status of Final
[2024-11-26] MEDS: 0.9 % Sodium Chloride Flush 3 ML SYRINGE IVFLUSH ×2 (07:58→21:38)
--- NOTE | 2024-11-26 08:00 | ECG_ITS ---
Test Reason : prolonged qtc Blood Pressure : */* mmHG Vent. Rate : 68 BPM Atrial Rate : 204 BPM P-R Int : * ms QRS Dur : 170 ms QT Int : 498 ms P-R-T Axes : 269 -18 200 degrees QTcB Int : 529 ms Atrial flutter with 3:1 A-V conduction Left bundle branch block Abnormal ECG When compared with ECG of 25-Nov-2024 17:46, Vent. rate has decreased by 38 bpm Nonspecific T wave abnormality has replaced inverted T waves in Inferior leads Referred By: Cristina Melo Electronically Signed By: STEPHANIE CALI MD
--- NOTE | 2024-11-26 08:01 | PC.NURSE ---
This Rn assumed care of patient @ 0700. Patient resting comfortably in bed at this time. Denies pain, denies SOB, Denies dizziness/lightheadedness. POC 97 no s/sx of hypo/hyperglycemia. US of carotid being performed results pending. IV access flushed. Patient still awaiting bed placement. Plan of care on going
[2024-11-26 08:07] LABS: Glucose, Whole Blood 97 mg/dL (60-115)
--- NOTE | 2024-11-26 08:25 | PHA.MEDREC ---
Pharmacy Consult ? Medication Reconciliation Pharmacy has completed the medication reconciliation, utilizing med list from [facility] in [place]. Also called [facility] [phone] and spoke to Sheri Figueroa (his nurse) to confirm that pt is NOT taking metformin (last filled at [facility] for 90 day supply on 10/09/24).
--- NOTE | 2024-11-26 09:46 | P.CONCA_ITS ---
History of Present Illness History of Present Illness Date of Service: 11/26/24 Requesting physician: Partha Sargent Consult reason: other (Syncope) Chief complaint: syncope hypotension Narrative: I was consulted to see José in cardiology consultation today for syncopal episode. Patient has a poor historian in his not able to give much history. History was mostly obtained from the chart. Patient does not even know why he is in the emergency room although realizes that he is in the hospital. He has intermittent episodes of appropriate answering but otherwise not able to give much history. Patient has prior history of severe cardiomyopathy with reported LVEF of 10-15%, nonischemic, diabetes, chronic persistent atrial flutter. Patient has prior history of homelessness and currently lives in his half-way/respiratory. He was referred here to the emergency room after he passed out while having a bowel movement or after having a bowel movement. This is unclear. Patient does not recall but when I told him that he was sent here because he passed out he affirms that. However he does not give any other history of symptoms. He currently denies any symptoms. Appears to be very comfortable. He said he does not have any symptoms of shortness of breath or chest pain. He has been monitored here. He has underlying history of left bundle-branch block which is old. Not sure as to his outpatient follow-up for primary care as well as cardiology care. He is currently appears to be on Eliquis, digoxin as well as metoprolol. No other neurohormonal modulators, unclear as to why patient not able to attest to any of the medications and why he is on sudden medications. Probably related to low blood pressure poor tolerance. Review of Systems 2 Review of Systems: Yes Unobtainable due to mental status FOR[facility]LY [facility], [facility] Past Medical History Medical History (Updated 11/26/24 @ 04:15 by TALHA Newton-CECE) Homelessness Unexplained weight loss Femoral vein, deep venous thrombosis Left ventricular mural thrombus Pulmonary embolism Syncope Hypotension Cardiomyopathy, nonischemic Atrial flutter Diabetes 1.5, managed as type 2 Social History Social History (Updated 11/26/24 @ 04:17 by TALHA Newton-CECE) Patient Tobacco Use Status: Former Tobacco user Smoked in Last 30 Days: Yes Use of substances other than those prescribed or required for medical reasons: No Advance Directives: No Advance Directives Information Provided: Yes Recently lost weight without trying: Yes How much weight loss: 34pounds or more Nutrition Risks: Dental problems Visits dentist regularly: No Poor oral hygiene: Yes service: No Current occupational status: retired Cognitive needs: Yes Hearing needs: No Vision needs: No Travel History Ebola Risk: Travel/Contact With Anyone From Affected Area/s: No Has Patient Experienced Ebola Symptoms: No Meds Allergies Allergy/AdvReac Type Severity Reaction Status Date / Time No Known Allergies Allergy Verified 11/25/24 17:42 Active Medications: Current Medications Acetaminophen (Acetaminophen 325 Mg Tablet) 650 mg PO Q6H PRN PRN Reason: Pain, Mild 1-3,fever,headache Albuterol/Ipratropium (Albuterol/Iprat 2.5/0.5mg 3 Ml Ampul.Neb) 3 ml INHALE Q4H PRN PRN Reason: Shortness of Breath/Wheezing Calcium Carbonate (Calcium Carbonate 750 Mg Tab.Chew) 750 mg PO Q4H PRN PRN Reason: Heartburn Dextrose (Dextrose 50 % 25 Gm/50 Ml Syringe) 25 gm IVPUSH Q15M PRN; Protocol PRN Reason: per Hypoglycemia Standing Ord. Enoxaparin Sodium (Enoxaparin Sodium 40 Mg/0.4 Ml Syringe) 40 mg SUBCUT Q24H [facility] Last Admin: 11/26/24 03:37 Dose: 40 mg Glucose (Glucose Gel 15 Gm Gel..Gram.) 15 gm PO Q15M PRN; Protocol PRN Reason: per Hypoglycemia Standing Ord. Piperacillin Sod/Tazobactam (Sod 4.5 gm/ Sodium Chloride) 100 mls @ 200 mls/hr IV Q8H [facility] Last Infusion: 11/26/24 04:40 Dose: Infused Insulin Human Lispro (Insulin Lispro 100 Unit/Ml 3 Ml Vial) 0 unit SUBCUT QIDACHS [facility]; Protocol Last Admin: 11/26/24 08:09 Dose: Not Given Magnesium Hydroxide (Milk Of Magnesia 30 Ml Oral.Susp) 30 ml PO DAILY PRN PRN Reason: Constipation Melatonin (Melatonin 3 Mg Tablet) 6 mg PO BEDTIME PRN PRN Reason: Insomnia Omeprazole (Omeprazole 20 Mg Capsule.Dr) 20 mg PO DAILY@0630 [facility] Last Admin: 11/26/24 06:26 Dose: 20 mg Ondansetron HCl (Ondansetron Hcl 4 Mg/2 Ml Vial) 4 mg IVPUSH Q8H PRN PRN Reason: Nausea and Vomiting Polyethylene Glycol (Polyethylene Glycol 3350 17 Gm Powd.Pack) 17 gm PO DAILY PRN PRN Reason: Constipation Senna (Sennosides 8.6 Mg Tablet) 17.2 mg PO BEDTIME SVETA Sodium Chloride (0.9 % Sodium Chloride Flush 3 Ml Syringe) 3 ml IVFLUSH QSHIFT [facility] Last Admin: 11/26/24 07:58 Dose: 3 ml Home Medications ?Medication ?Instructions ?Recorded ?Confirmed ?Last Taken ?Type acetaminophen 325 mg tablet 650 mg PO Q6H PRN Pain 11/26/24 11/26/24 Unknown History albuterol sulfate 90 mcg/actuation 2 puff inhalation Q4H PRN 11/26/24 11/26/24 Unknown History aerosol inhaler Shortness Of Breath Or Wheezing apixaban 5 mg tablet (Eliquis) 5 mg PO BID 11/26/24 11/26/24 Unknown History bisacodyl 10 mg rectal suppository 10 mg [place] DAILY PRN Constipation 11/26/24 11/26/24 Unknown History digoxin 125 mcg (0.125 mg) tablet 125 mcg PO DAILY 11/26/24 11/26/24 Unknown History magnesium hydroxide 400 mg/5 mL 30 ml PO DAILY PRN Constipation 11/26/24 11/26/24 Unknown History oral suspension (Milk of Magnesia) metoprolol succinate 100 mg 100 mg PO DAILY 11/26/24 11/26/24 Unknown History tablet,extended release 24 hr mirtazapine 15 mg tablet 15 mg PO BEDTIME 11/26/24 11/26/24 Unknown History polyethylene glycol 3350 17 17 g PO DAILY PRN Constipation 11/26/24 11/26/24 Unknown History gram/dose oral powder sennosides 8.6 mg tablet (senna) 8.6 mg PO BID 11/26/24 11/26/24 Unknown History sodium phosphates 19 gram-7 118 ml [place] DAILY PRN Constipation 11/26/24 11/26/24 Unknown History gram/118 mL enema (Fleet Enema) Physical Exam 2 Vital Signs: Vital Signs: Last Vital Signs Temp 97.8 F 11/26/24 06:38 Pulse 69 11/26/24 06:38 Resp 17 11/26/24 06:38 BP 111/91 H 11/26/24 06:38 Pulse Ox 99 11/26/24 06:38 O2 Del Method Room Air 11/26/24 06:38 BMI result Body Mass Index 21.3 Const: General: cooperative, comfortable, no acute distress, alert and awake Nutritional Appearance: thin Orientation/consciousness: patient oriented x3 HEENT: Head: Yes normocephalic and Yes atraumatic Neck: Neck: Yes trachea midline, Yes supple and Yes no JVD Resp: Effort & Inspection: normal respiratory effort Auscultation: clear to auscultation bilaterally Cardio: Jugular venous distension: no JVD Palpation: abnormal PMI displaced PMI Rate: regular rate Heart sounds: S1 normal heart sound present, S2 normal heart sound present, no click, no gallops and no murmurs GI: Auscultation: normal bowel sounds Skin: General skin exam: no rashes or lesions noted Neuro: General: patient oriented x3 and no focal motor deficits Extrem: General: Yes no clubbing, cyanosis or edema Psych: Appearance: grossly normal Objective Labs and Meds 11/25/24 18:11 11/25/24 18:11 Lab results: Laboratory Results - last 24 hr 11/25/24 11/25/24 11/25/24 18:11 18:19 21:28 WBC 8.5 RBC 3.85 L Hgb 10.7 L Hct 33.3 L MCV 86.5 MCH 27.8 MCHC 32.1 RDW 15.9 Plt Count 221 MPV 9.2 L Immature Gran % (Auto) 0.4 Neut % (Auto) 73.6 H Lymph % (Auto) 19.2 L [place] % (Auto) 5.6 Eos % (Auto) 0.8 Baso % (Auto) 0.4 Lymph # (Auto) 1.6 [place] # (Auto) 0.5 Eos # (Auto) 0.1 Baso # (Auto) 0.0 Abs Immat Gran (auto) 0.03 Absolute Neuts (auto) 6.2 Absolute Nucleated RBC 0.000 Nucleated RBC % (auto) 0.0 PT 19.5 H INR 1.7 H Sodium 139 Potassium 4.0 Chloride 109 H Carbon Dioxide 23 Anion Gap 11 L BUN 31 H Creatinine 1.00 Estim Creat Clear Calc 67.1 Estimated GFR > 60 POC Glucose Random Glucose 102 Lactic Acid 3.0 H* Lactic Acid F/U @ 2Hr 1.8 Calcium 8.6 Magnesium 1.7 Total Bilirubin 0.7 Direct Bilirubin 0.3 AST 27 ALT 22 Alkaline Phosphatase 93 Troponin I High Sens 11.5 C-Reactive Protein 2.46 H Total Protein 5.9 L Albumin 3.0 L Lipase 9 Urine Color Urine Appearance Urine pH Ur Specific [place] Urine Protein Urine Glucose (UA) Urine Ketones Urine Blood Urine Nitrite Ur Leukocyte Esterase Urine RBC Urine WBC Ur Squamous Epith Cells Urine Bacteria Hyaline Casts Digoxin < 0.2 L Influenza Type A (PCR) NEGATIVE Influenza Type B (PCR) NEGATIVE RSV RNA Qual (PCR) NEGATIVE SARS-CoV-2 RNA (RT-PCR) NEGATIVE 11/25/24 11/26/24 11/26/24 23:05 02:00 07:56 WBC RBC Hgb Hct MCV MCH MCHC RDW Plt Count MPV Immature Gran % (Auto) Neut % (Auto) Lymph % (Auto) [place] % (Auto) Eos % (Auto) Baso % (Auto) Lymph # (Auto) [place] # (Auto) Eos # (Auto) Baso # (Auto) Abs Immat Gran (auto) Absolute Neuts (auto) Absolute Nucleated RBC Nucleated RBC % (auto) PT INR Sodium Potassium Chloride Carbon Dioxide Anion Gap BUN Creatinine Estim Creat Clear Calc Estimated GFR POC Glucose 97 Random Glucose Lactic Acid Lactic Acid F/U @ 2Hr Calcium Magnesium Total Bilirubin Direct Bilirubin AST ALT Alkaline Phosphatase Troponin I High Sens 10.6 C-Reactive Protein Total Protein Albumin Lipase Urine Color Dark Yellow Urine Appearance Clear Urine pH 5.5 Ur Specific [place] >= 1.030 H Urine Protein 30 (1+) H Urine Glucose (UA) Negative Urine Ketones Trace Urine Blood Negative Urine Nitrite Negative Ur Leukocyte Esterase Small (1+) H Urine RBC 0-2 Urine WBC 11-20 H Ur Squamous Epith Cells 0-2 Urine Bacteria None Seen Hyaline Casts 3-5 Digoxin Influenza Type A (PCR) Influenza Type B (PCR) RSV RNA Qual (PCR) SARS-CoV-2 RNA (RT-PCR) EKG shows atrial flutter with 3 is to 1 conduction with left bundle-branch block. Imaging Radiologist's impression: Impressions Carotid Doppler Study 11/26/24 07:41 IMPRESSION: Possible cardiac arrhythmia. Correlation with EKG is recommended. Unremarkable ultrasound of the carotid arteries. Electronically signed by: Fabrizio Pollard MD 11/26/2024 08:26 AM EDT RP Assessment and Plan (1) Syncope: Qualifiers: Syncope type: vasovagal syncope Qualified Code(s): R55 - Syncope and collapse Status: Acute Syncope while having a bowel movement, suggestive of either vasovagal or more likely orthostatic syncope probably related to dehydration intravascular volume depletion. Patient came in with significant hypotension had add acidosis suggestive of overall poor perfusion related to low blood pressure. I think this has improved with IV fluids and more likely that this is related to dehydration. Not able to get across the patient about management of this. He needs adequate hydration. I will also trend in his hemoglobin and hematocrit make sure there was no significant fall in his hemoglobin hematocrit given that he is on apixaban. Full disclosure cardiac monitoring for 1 day. Echocardiogram. I would check orthostatic vitals. If he has significant low blood pressure would need to reduce his metoprolol. (2) Atrial flutter: Status: Acute Seems like he has chronic persistent atrial flutter currently on dual therapy with metoprolol and digoxin. Rate adequately appears to be controlled. However if blood pressure remains low may need to reduce metoprolol dose. Continue digoxin dose. Assess digoxin levels. Continue full oral anticoagulation unless there is significant drop in his hematocrit. (3) Cardiomyopathy, nonischemic: Status: Acute Prior history of nonischemic cardiomyopathy with severe LV systolic dysfunction. Unclear etiology. It is nonischemic in nature. I was not able to discuss the gravity of his medical condition with him appropriately. Can not tolerate neurohormonal modulation due to low blood pressure. For now continue rate control with metoprolol and digoxin. No signs of heart failure at current point time. Advise adequate oral hydration. Will sign of the case and follow if need be. Thank you for allowing me to partake in his care Procedures Date of Service Date of Service: 11/26/24
--- NOTE | 2024-11-26 09:53 | PM.EVENT ---
Event Note Date of Service: 11/26/24 Event Note: Pt seen/examined. Admitted this morning for syncope, suspecting orthostatinc. Hold metoprolol for now, may need lower dose at dsicharge. IVF and repeat orthostatic BP, cardiology input noted. Time Spent With Patient Time: Total time managing care of this patient today ____ minutes.
[2024-11-26 09:58] LABS: Alanine Aminotransferase 30 U/L (0-40); Alkaline Phosphatase 88 U/L (39-117); Anion Gap 10 (12-20); Aspartate Amino Transferase 33 U/L (5-37); Bilirubin Total 0.7 mg/dL (0.0-1.0); Blood Urea Nitrogen 27 mg/dL (9-16); Calcium 8.8 mg/dL (8.4-10.2); Carbon Dioxide 24 mmol/L (22-29); Chloride 107 mmol/L (96-108); Cholesterol 178 mg/dL (<200); Creatinine Clr Calc Pharmacy 86.1; Estimated Glomerular Filt Rate > 60; Glucose Random 83 mg/dL (60-115); HDL Cholesterol 42 mg/dL (>40); LDL Cholesterol Calculated 121 mg/dL (<100); Potassium 3.9 mmol/L (3.3-5.1); Sodium 137 mmol/L (135-145); Total Protein 5.8 g/dL (6.5-8.0); Triglycerides 76 mg/dL (<150)
[2024-11-26 10:04] LABS: Syphilis Screen Nonreactive (Nonreactive)
[2024-11-26 10:10] LABS: Vitamin B12 1082 pg/mL (200-900)
[2024-11-26 10:14] LABS: TSH reflex Free T4 1.56 uIU/mL (0.32-4.0)
[2024-11-26] MEDS: Digoxin 0.125 MG TABLET PO (10:16)
[2024-11-26] MEDS: Apixaban 5 MG TABLET PO ×2 (10:16→21:35)
--- NOTE | 2024-11-26 11:03 | MHC.CLN ---
NUTRITION CONSULT CONSULT FOR REPORTED WEIGHT LOSS AND HOMELESSNESS. PATIENT RESIDING AT SNF X APPROX ONE MONTH. TO ED S/P FALL AT SNF. DIET=CARDIAC. NO ADDITIONAL NUTRITION INTERVENTIONS AT THIS TIME.
--- NOTE | 2024-11-26 11:59 | MHC.CM.PN ---
Addendum entered by Grace Charles 11/26/24 16:33: COPY OF HCP RECEIVED, VM MESSAGE LEFT FOR AGENT, NI OSCAR [phone] PT IS STR AT [place], BUT THEY WILL TAKE HIM BACK HE WILL NEED BLS TRANSPORT Original Note: PT WITH DEMENTIA DIAGNOSIS, SENT IN FROM [facility] MESSAGE SENT TO [facility] REQUESTING A HCP AND BED HOLD STATUS
[2024-11-26] MEDS: Lactated Ringers 1,000 ML 125 ML IVCONT (12:58)
[2024-11-26 13:43] LABS: MANUAL DIFF FLAG NO
[2024-11-26 13:46] LABS: Basophils Percent Auto 0.4 % (0-2); Eosinophils Absolute Auto 0.1 X10*3/uL (0.0-0.4); Eosinophils Percent Auto 1.3 % (0-4); Hematocrit 31.4 % (42.0-52.0); Hemoglobin 10.3 g/dl (14.0-18.0); Imm Gran Abs Auto 0.03 X10*3/uL (0.00-0.03); Imm Gran Pct Auto 0.4 % (0.0-0.4); Lymphocytes Absolute Auto 1.4 X10*3/uL (1.2-4.9); Lymphocytes Percent Auto 18.3 % (20-40); Mean Corpuscular HGB Conc 32.8 g/dl (31.0-36.0); Mean Corpuscular Hemoglobin 28.5 pg (27.0-33.0); Mean Platelet Volume 9.4 fL (9.4-12.4); Monocytes Absolute Auto 0.5 X10*3/uL (0.1-1.2); Monocytes Percent Auto 6.4 % (2-11); Neutrophils Absolute Auto 5.5 x10*3/uL (2.0-8.3); Neutrophils Percent Auto 73.2 % (45-73); Platelet Count 181 X10*3/uL (160-400); Red Blood Count 3.61 X10*6/uL (4.60-5.80); Red Cell Distribution Width 15.8 % (11.0-16.0); White Blood Count 7.5 X10*3/uL (4.8-10.8)
[2024-11-26 13:51] LABS: Glucose, Whole Blood 74 mg/dL (60-115)
[2024-11-26 13:56] LABS: Estimated Average Glucose 123 mg/dL; Hemoglobin A1C 112.1209 umol/L; Hemoglobin A1c % 5.9 % (<6.0); Total Hemoglobin (HGBA1C) 2726.4851 umol/L
[2024-11-26 14:05] LABS: B Type Natriuretic Peptide 271 pg/mL (<100)
--- NOTE | 2024-11-26 15:41 | PC.NURSE ---
pt noted to be hypotensive - 88/48 in LUE. repeat BP displays 70/48 in the RUE. pt denies any dizziness/lightheadedness/weakness. alert and awake at this time. answering questions/following commands appropriately. admitting provider notified/aware of results. maintenance IVF continues to infuse @ 125mls/hr. no new orders by provider at this time. plan of care ongoing.
--- NOTE | 2024-11-26 15:55 | PC.NURSE ---
IVF bolus infusing per provider order. effectiveness pending.
--- NOTE | 2024-11-26 16:49 | PC.NURSE ---
patient's blood pressure continues to remain soft but currently improving at this time. otherwise, vss and up to date. nsr on the engine monitor. pt currently resting in no apparent distress. still resides as asymptomatic - denies any dizziness/lightheadedness. 2nd bag of 500ml LR infusing at this time. per hospitalist, IV maintenance fluids will be increased to 150mls/hr s/p IVF bolus. plan of care ongoing. call hernandez placed within reach.
[2024-11-26 17:51] LABS: Glucose, Whole Blood 88 mg/dL (60-115)
[2024-11-26] MEDS: Albumin Human 25 % 100 ML 133.33 ML IV (18:12)
--- NOTE | 2024-11-26 18:20 | PC.NURSE ---
Patient BP 84/57, Administered 10mg midodrine per provider, effectiveness pending. Currently infusing albumin 25% @ 133.3 ml
--- NOTE | 2024-11-26 19:39 | PC.NURSE ---
Took over care from SURY Triplett, repeat vitals, no longer fever, pure wick in place, poc 274.
--- NOTE | 2024-11-26 20:13 | PC.NURSE ---
report given pt transported upstairs.
[2024-11-26 20:46] LABS: Glucose, Whole Blood 83 mg/dL (60-115)
[2024-11-26] MEDS: Mirtazapine 15 MG TABLET PO (21:35)
[2024-11-26] MEDS: Sennosides 8.6 MG TABLET PO (21:35)
[2024-11-27] VITALS (8 sets, daily range): BP systolic 74–116; BP diastolic 51–75; PULSE 65–200; RESP 16–20; TEMP 36.6; O2SAT 92–99
--- NOTE | 2024-11-27 | ECG_ITS ---
Test Reason : tachycardia Blood Pressure : */* mmHG Vent. Rate : 68 BPM Atrial Rate : 204 BPM P-R Int : * ms QRS Dur : 170 ms QT Int : 496 ms P-R-T Axes : 266 -23 210 degrees QTcB Int : 527 ms Atrial flutter with 3:1 A-V conduction Left bundle branch block Abnormal ECG When compared with ECG of 26-Nov-2024 09:09, No significant change was found Referred By: Wade Hensley Electronically Signed By: STEPHANIE CALI MD
--- NOTE | 2024-11-27 | ECG_ITS ---
Test Reason : rapid reponse Blood Pressure : */* mmHG Vent. Rate : 92 BPM Atrial Rate : 92 BPM P-R Int : * ms QRS Dur : 160 ms QT Int : 428 ms P-R-T Axes : -80 35 228 degrees QTcB Int : 529 ms Atrial flutter Left bundle branch block Abnormal ECG When compared with ECG of 27-Nov-2024 04:50, Questionable change in QRS axis Inverted T waves have replaced nonspecific T wave abnormality in Inferior leads Referred By: Jaclyn Burch Electronically Signed By: STEPHANIE CALI MD
[2024-11-27] MEDS: Piperacillin Sodium/Tazobactam 4.5 GM in 0.9 % Sodium Chloride 100 ML IV (03:24)
[2024-11-27] MEDS: Enoxaparin Sodium 40 MG/0.4 ML SYRINGE SUBCUT (03:25)
[2024-11-27] MEDS: Omeprazole 20 MG CAPSULE.DR PO (06:47)
[2024-11-27 07:27] LABS: Glucose, Whole Blood 86 mg/dL (60-115)
[2024-11-27 07:37] LABS: Magnesium 1.9 mg/dL (1.6-2.6)
[2024-11-27 08:39] LABS: Glucose, Whole Blood 96 mg/dL (60-115)
[2024-11-27] MEDS: Amiodarone/Dextrose 150 MG/100 ML PLAST..BAG 600 MG IV (08:42)
[2024-11-27] MEDS: 0.9 % Sodium Chloride 1,000 ML 300 ML IV (08:45)
--- NOTE | 2024-11-27 08:58 | PM.EVENT ---
Event Note Date of Service: 11/27/24 Event Note: [employer] TE[employer]ER called for syncope in bathroom with wide complex monomorphic tachycardia in 200s. patient quickly regained conciousness, was lethargic but responsive and talking. sbps in 110s. he was given 2 boluses of 150mg of amiodarone, initially converted to a wide complex disassociated rhythm in 60s. then into 2:1 a flutter with LBBB (his previous rhythm). at that time sbp went down to 70s, patient still talking. given 500cc NS bolus, transferred to ICU. Time Spent With Patient Time: Total time managing care of this patient today ____ minutes.
[2024-11-27] MEDS: Phenylephrine HCL 20 MG in 0.9 % Sodium Chloride 250 ML 30.09 MG IVCONT (09:00)
[2024-11-27 09:23] LABS: Hematocrit 35.8 % (42.0-52.0); Hemoglobin 10.4 g/dl (14.0-18.0); Mean Corpuscular HGB Conc 29.1 g/dl (31.0-36.0); Mean Corpuscular Hemoglobin 27.4 pg (27.0-33.0); Mean Corpuscular Volume 94.5 fL (80.0-98.0); Red Blood Count 3.79 X10*6/uL (4.60-5.80); Red Cell Distribution Width 16.4 % (11.0-16.0); White Blood Count 6.7 X10*3/uL (4.8-10.8)
[2024-11-27 09:36] LABS: Glucose, Whole Blood 101 mg/dL (60-115)
[2024-11-27] MEDS: Amiodarone HCL 900 MG in 0.9 % Sodium Chloride 500 ML 34.53 MG IVCONT (09:37)
[2024-11-27 09:39] LABS: Anion Gap 13 (12-20); Blood Urea Nitrogen 16 mg/dL (9-16); Calcium 8.4 mg/dL (8.4-10.2); Carbon Dioxide 20 mmol/L (22-29); Chloride 111 mmol/L (96-108); Estimated Glomerular Filt Rate > 60; Glucose Random 115 mg/dL (60-115); Potassium 3.5 mmol/L (3.3-5.1); Sodium 140 mmol/L (135-145)
[2024-11-27 09:43] LABS: B Type Natriuretic Peptide 306 pg/mL (<100)
[2024-11-27 09:45] LABS: Troponin-I High Sensitivity 11.8 ng/L (<3.5-35.0)
[2024-11-27 09:59] LABS: Platelet Count 80 X10*3/uL (160-400)
--- NOTE | 2024-11-27 10:18 | PM.PNCARD ---
Subjective Subjective Date of Service: 11/27/24 Principal diagnosis: Wide complex tachycardia, low blood pressure Interval history: Patient this morning developed wide complex tachycardia with heart rate up to 100 beats per minute. Was alert oriented without any symptoms of palpitations. Rapid response was called. On the monitor it appeared that the QRS complex is similar to his baseline QRS complex 1 lead although different in the other leads. This is given his baseline significant cardiomyopathy highly likely could represent sustained VT. He was then treated with amiodarone boluses x2 and subsequently returned back to his baseline rhythm was atrial flutter with left bundle-branch block which was confirmed by 12 lead EKG. Her patient subsequently developed hypotension and was transferred to ICU and is currently on phenylephrine therapy. Patient continues to deny any symptoms. Denies any shortness of breath, chest pain, lightheadedness. Denies any palpitations. Review of Systems Constitutional: Reports no additional constitutional complaints Cardiovascular: Denies chest pain, Denies lightheadedness, Denies Loss of Consciousness, Denies palpitations, Denies dyspnea and Denies orthopnea Respiratory: Reports no additional respiratory complaints and Denies dyspnea Genitourinary: Reports no additional male genitourinary complaints Skin/Breast: Reports system reviewed and no additional complaints, except as docu Psychiatric: Reports no additional psychiatric complaints Endocrine: Reports no additional endocrine complaints and Denies palpitations Physical Exam Vital Signs: Last Vital Signs Temp 97.9 F 11/27/24 07:00 Pulse 96 11/27/24 09:02 Resp 18 11/27/24 09:02 BP 84/63 L 11/27/24 09:02 Pulse Ox 96 11/27/24 07:00 O2 Del Method Nasal Cannula 11/27/24 09:02 BMI result Body Mass Index 23.2 Const General: cooperative, comfortable, no acute distress, alert and awake Nutritional Appearance: thin Orientation/consciousness: patient oriented x3 HEENT Head: Yes normocephalic and Yes atraumatic Neck Neck: Yes trachea midline, Yes supple and Yes no JVD Resp Effort & Inspection: normal respiratory effort Auscultation: clear to auscultation bilaterally Cardio Jugular venous distension: no JVD Palpation: abnormal PMI displaced PMI Rhythm: abnormal rhythm irregularly irregular Heart sounds: S1 normal heart sound present, S2 normal heart sound present, no click, no gallops and no murmurs GI Auscultation: normal bowel sounds Skin General skin exam: no rashes or lesions noted Neuro General: patient oriented x3 and no focal motor deficits Extrem General: Yes no clubbing, cyanosis or edema Psych Appearance: grossly normal Objective Labs and Meds 11/27/24 09:15 11/27/24 09:19 Lab results: Laboratory Results - last 24 hr 11/26/24 11/26/24 11/26/24 13:37 13:48 17:45 WBC 7.5 RBC 3.61 L Hgb 10.3 L Hct 31.4 L MCV 87.0 MCH 28.5 MCHC 32.8 RDW 15.8 Plt Count 181 MPV 9.4 Immature Gran % (Auto) 0.4 Neut % (Auto) 73.2 H Lymph % (Auto) 18.3 L [place] % (Auto) 6.4 Eos % (Auto) 1.3 Baso % (Auto) 0.4 Lymph # (Auto) 1.4 [place] # (Auto) 0.5 Eos # (Auto) 0.1 Baso # (Auto) 0.0 Abs Immat Gran (auto) 0.03 Absolute Neuts (auto) 5.5 Absolute Nucleated RBC 0.000 Nucleated RBC % (auto) 0.0 Hold Purple Top Sodium Potassium Chloride Carbon Dioxide Anion Gap BUN Creatinine Estim Creat Clear Calc Estimated GFR POC Glucose 74 88 Random Glucose Estimat Average Glucose 123 Hemoglobin A1c % 5.9 Calcium Magnesium Troponin I High Sens B-Natriuretic Peptide 271 H 11/26/24 11/27/24 11/27/24 20:37 06:23 07:02 WBC RBC Hgb Hct MCV MCH MCHC RDW Plt Count MPV Immature Gran % (Auto) Neut % (Auto) Lymph % (Auto) [place] % (Auto) Eos % (Auto) Baso % (Auto) Lymph # (Auto) [place] # (Auto) Eos # (Auto) Baso # (Auto) Abs Immat Gran (auto) Absolute Neuts (auto) Absolute Nucleated RBC Nucleated RBC % (auto) Hold Purple Top SEE NOTE Sodium Potassium Chloride Carbon Dioxide Anion Gap BUN Creatinine Estim Creat Clear Calc Estimated GFR POC Glucose 83 86 Random Glucose Estimat Average Glucose Hemoglobin A1c % Calcium Magnesium 1.9 Troponin I High Sens B-Natriuretic Peptide 11/27/24 11/27/24 11/27/24 08:35 09:15 09:19 WBC 6.7 RBC 3.79 L Hgb 10.4 L Hct 35.8 L MCV 94.5 D MCH 27.4 MCHC 29.1 L RDW 16.4 H Plt Count 80 L D MPV 11.0 Immature Gran % (Auto) Neut % (Auto) Lymph % (Auto) [place] % (Auto) Eos % (Auto) Baso % (Auto) Lymph # (Auto) [place] # (Auto) Eos # (Auto) Baso # (Auto) Abs Immat Gran (auto) Absolute Neuts (auto) Absolute Nucleated RBC 0.000 Nucleated RBC % (auto) 0.0 Hold Purple Top SEE NOTE Sodium 140 Potassium 3.5 Chloride 111 H Carbon Dioxide 20 L Anion Gap 13 BUN 16 Creatinine 0.90 Estim Creat Clear Calc 81.0 Estimated GFR > 60 POC Glucose 96 Random Glucose 115 Estimat Average Glucose Hemoglobin A1c % Calcium 8.4 Magnesium 2.0 Troponin I High Sens 11.8 B-Natriuretic Peptide 306 H 11/27/24 09:32 WBC RBC Hgb Hct MCV MCH MCHC RDW Plt Count MPV Immature Gran % (Auto) Neut % (Auto) Lymph % (Auto) [place] % (Auto) Eos % (Auto) Baso % (Auto) Lymph # (Auto) [place] # (Auto) Eos # (Auto) Baso # (Auto) Abs Immat Gran (auto) Absolute Neuts (auto) Absolute Nucleated RBC Nucleated RBC % (auto) Hold Purple Top Sodium Potassium Chloride Carbon Dioxide Anion Gap BUN Creatinine Estim Creat Clear Calc Estimated GFR POC Glucose 101 Random Glucose Estimat Average Glucose Hemoglobin A1c % Calcium Magnesium Troponin I High Sens B-Natriuretic Peptide Progress Note: A&P Assessment and plan (1) Wide-complex tachycardia: Status: Acute Assessment and Plan: Wide complex tachycardia in this elderly gentleman with prior known severe LV systolic dysfunction with underlying left bundle-branch block. Unclear on the monitor whether this is clearly sustained ventricular tachycardia has some strips suggest that QRS complex as similar to his baseline complexes. However he is having multiple PVCs. Became hypotensive after amiodarone boluses which is expected with vaso dilatation. He is currently on phenylephrine drip in the ICU. Given his underlying significant structural abnormality with wide complex tachycardia and left bundle-branch block he will require further therapy with implantable defibrillator. He will most likely need a biventricular ICD. For now given that he is on vasopressors , will need transfer to [facility] to CICU. Just accepted by the CICU attending Dr. Frey. Patient will be maintained on low-dose Oliver-Synephrine for blood pressure control. (2) Cardiomyopathy, nonischemic: Status: Acute Assessment and Plan: Severe persistent LV systolic dysfunction secondary to nonischemic cardiomyopathy. Patient presented with syncope and developed wide complex tachycardia. Will need ICD support for secondary prevention now with biventricular ICD. Can not tolerate much neurohormonal modulation due to prior history of low blood pressure. (3) Atrial flutter: Status: Acute Assessment and Plan: Atrial flutter with controlled response on metoprolol and digoxin. Blood pressure is on the low side. Hold off on metoprolol therapy. Heart rate is well controlled at this point time on IV amiodarone drip. Currently on full oral anticoagulation Eliquis, continue the same. Greater than 1 critical hours spent in managing his care and managing and coordinating his transfer. Time Spent With Patient Time: Total time managing care of this patient today ____ minutes. Progress Note: Quality Stroke Does the patient have a stroke diagnosis?: No Reason for No Anti-thrombotic by Day Two: N/A - Med Ordered Procedures Date of Service Date of Service: 11/27/24
--- NOTE | 2024-11-27 10:36 | P.DS_ITS ---
DS: Providers Provider Date of Service: 11/27/24 Date of admission: 11/26/24 02:49 Date of discharge: 11/27/24 Primary care physician: Unknown Physician Consults: 11/26/24 03:05 Consult to Cardiology Routine Consulting Provider: [facility] Reason for consultation: syncope Has provider been notified: No DS: Transfer Hospital Acceptance Reason for Transfer: Cardiomyopathy/arrhythmia evaluation. Name of Facility: [facility] Accepting Provider: Dr. Frey DS: Diagnosis Discharge Diagnosis (1) Wide-complex tachycardia: Status: Acute (2) Cardiomyopathy, nonischemic: Status: Acute (3) Atrial flutter: Status: Acute DS: Summary Hospital Course Hospital Course: 74-year-old gentleman with underlying history of diabetes mellitus, AFlutter, nonischemic cardiomyopathy with EF of 10-15% with left ventricular mural thrombus, DVT with PE, LBBB admitted on 11/26/2024 with witnessed syncopal episode, hospital course significant for development of wide complex tachycardia/VT on [id number] requiring amiodarone load and drip, transferred to intensive care unit. Patient evaluated by Cardiology service and transfer request for cardiomyopathy/VTE evaluation was placed with [facility] and granted. Time Attestation Total time managing care of this patient today: 45 mintues. Discharge Coordination Time (in mins): 30 Quality: Safe Use of Opioids Does Pt have an Active Cancer Diagnosis on the Problem List?: No Quality: Stroke Does the patient have a stroke diagnosis?: No Physical Exam Vital Signs: Vital Signs: Last Vital Signs Temp 97.9 F 11/27/24 07:00 Pulse 65 11/27/24 10:33 Resp 18 11/27/24 09:02 BP 86/54 L 11/27/24 10:33 Pulse Ox 96 11/27/24 07:00 O2 Del Method Nasal Cannula 11/27/24 09:02 BMI result Body Mass Index 23.2 Const: General: no acute distress, alert and awake Eyes: Sclerae: sclerae normal EOM: EOMs intact bilaterally Neck: Neck: Yes no lymphadenopathy, Yes trachea midline and Yes supple Resp: Effort & Inspection: normal respiratory effort and no respiratory distress Auscultation: clear to auscultation bilaterally Cardio: Rate: regular rate Rhythm: regular rhythm Heart sounds: no gallops, no murmurs and no rubs GI: Palpation (GI): Soft to palpation and Other GI palpation findings present ( Nontender) Auscultation: normal bowel sounds Extrem: General: Yes no pedal edema, No clubbing and No cyanosis DS: Data Data Completed and Pending Labs on day of discharge: Laboratory Results - last 24 hr 11/26/24 11/26/24 11/26/24 13:37 13:48 17:45 WBC 7.5 RBC 3.61 L Hgb 10.3 L Hct 31.4 L MCV 87.0 MCH 28.5 MCHC 32.8 RDW 15.8 Plt Count 181 MPV 9.4 Immature Gran % (Auto) 0.4 Neut % (Auto) 73.2 H Lymph % (Auto) 18.3 L [place] % (Auto) 6.4 Eos % (Auto) 1.3 Baso % (Auto) 0.4 Lymph # (Auto) 1.4 [place] # (Auto) 0.5 Eos # (Auto) 0.1 Baso # (Auto) 0.0 Abs Immat Gran (auto) 0.03 Absolute Neuts (auto) 5.5 Absolute Nucleated RBC 0.000 Nucleated RBC % (auto) 0.0 Hold Purple Top Sodium Potassium Chloride Carbon Dioxide Anion Gap BUN Creatinine Estim Creat Clear Calc Estimated GFR POC Glucose 74 88 Random Glucose Estimat Average Glucose 123 Hemoglobin A1c % 5.9 Calcium Magnesium Troponin I High Sens B-Natriuretic Peptide 271 H 11/26/24 11/27/24 11/27/24 20:37 06:23 07:02 WBC RBC Hgb Hct MCV MCH MCHC RDW Plt Count MPV Immature Gran % (Auto) Neut % (Auto) Lymph % (Auto) [place] % (Auto) Eos % (Auto) Baso % (Auto) Lymph # (Auto) [place] # (Auto) Eos # (Auto) Baso # (Auto) Abs Immat Gran (auto) Absolute Neuts (auto) Absolute Nucleated RBC Nucleated RBC % (auto) Hold Purple Top SEE NOTE Sodium Potassium Chloride Carbon Dioxide Anion Gap BUN Creatinine Estim Creat Clear Calc Estimated GFR POC Glucose 83 86 Random Glucose Estimat Average Glucose Hemoglobin A1c % Calcium Magnesium 1.9 Troponin I High Sens B-Natriuretic Peptide 11/27/24 11/27/24 11/27/24 08:35 09:15 09:19 WBC 6.7 RBC 3.79 L Hgb 10.4 L Hct 35.8 L MCV 94.5 D MCH 27.4 MCHC 29.1 L RDW 16.4 H Plt Count 80 L D MPV 11.0 Immature Gran % (Auto) Neut % (Auto) Lymph % (Auto) [place] % (Auto) Eos % (Auto) Baso % (Auto) Lymph # (Auto) [place] # (Auto) Eos # (Auto) Baso # (Auto) Abs Immat Gran (auto) Absolute Neuts (auto) Absolute Nucleated RBC 0.000 Nucleated RBC % (auto) 0.0 Hold Purple Top SEE NOTE Sodium 140 Potassium 3.5 Chloride 111 H Carbon Dioxide 20 L Anion Gap 13 BUN 16 Creatinine 0.90 Estim Creat Clear Calc 81.0 Estimated GFR > 60 POC Glucose 96 Random Glucose 115 Estimat Average Glucose Hemoglobin A1c % Calcium 8.4 Magnesium 2.0 Troponin I High Sens 11.8 B-Natriuretic Peptide 306 H 11/27/24 09:32 WBC RBC Hgb Hct MCV MCH MCHC RDW Plt Count MPV Immature Gran % (Auto) Neut % (Auto) Lymph % (Auto) [place] % (Auto) Eos % (Auto) Baso % (Auto) Lymph # (Auto) [place] # (Auto) Eos # (Auto) Baso # (Auto) Abs Immat Gran (auto) Absolute Neuts (auto) Absolute Nucleated RBC Nucleated RBC % (auto) Hold Purple Top Sodium Potassium Chloride Carbon Dioxide Anion Gap BUN Creatinine Estim Creat Clear Calc Estimated GFR POC Glucose 101 Random Glucose Estimat Average Glucose Hemoglobin A1c % Calcium Magnesium Troponin I High Sens B-Natriuretic Peptide Preliminary micro results at discharge 11/25/24 18:48 Blood Culture - Preliminary Blood - Venous No growth after 24 hours. 11/25/24 18:19 Blood Culture - Preliminary Blood - Venous No growth after 24 hours. Discharge Plan Discharge Anticipated Discharge Date/Time: 11/27/24 10:39 Patient Disposition: Xfer Acute Care Hospital Discharge Diagnosis: VT Referrals: Physician,Unknown J [Primary Care Provider] - 1 Week Discharge Medications: Discontinued metoprolol succinate 100 mg tablet extended release 24 hr 100 mg PO DAILY digoxin 125 mcg (0.125 mg) tablet 125 mcg PO DAILY mirtazapine 15 mg tablet 15 mg PO BEDTIME albuterol sulfate 90 mcg/actuation HFA aerosol inhaler 2 puff inhalation Q4H PRN (Reason: Shortness Of Breath Or Wheezing) Eliquis 5 mg tablet 5 mg PO BID bisacodyl 10 mg Suppository 10 mg AZ DAILY PRN (Reason: Constipation) Rx Instructions: USE IF MILK OF MAGNESIA IS INEFFECTIVE Fleet Enema 19-7 gram/118 mL Enema 118 ml AZ DAILY PRN (Reason: Constipation) Rx Instructions: USE IF BISACODYLSUPP IS INEFFECTIVE magnesium hydroxide [Milk of Magnesia] 400 mg/5 mL Suspension 30 ml PO DAILY PRN (Reason: Constipation) Rx Instructions: FOR NO BOWEL MOVEMENT IN 3 DAYS polyethylene glycol 3350 17 gram/dose Powder 17 g PO DAILY PRN (Reason: Constipation) sennosides [senna] 8.6 mg Tablet 8.6 mg PO BID acetaminophen 325 mg Tablet 650 mg PO Q6H PRN (Reason: Pain) Discharge Orders: Discharge Order (Routine); Ordered 11/27/24 Ordered By: Omkar Cervantes Activity on Discharge: Bedrest Stand Alone Forms: Patient Portal Discharge page Print Language: Yoruba Care Plan Goals: Cardiomyopathy/arrhythmia evaluation. Health Concerns: Witnessed likely cardiogenic syncope. Plan of Treatment: Cardiomyopathy/arrhythmia evaluation. Assessment: 74-year-old gentleman with underlying LBBB, nonischemic cardiomyopathy with EF 10-15%, left ventricular mural thrombus, DVT/PE on anticoagulation admitted with witnessed syncopal episode likely cardiogenic in etiology with hospital course further complicated by development of VT requiring amiodarone load and drip, evaluated by Cardiology service and is being transferred for advanced cardiomyopathy/arrhythmia evaluation.
--- NOTE | 2024-11-27 10:57 | MHC.CM.PN ---
Pt is being transferred to [facility] for additional cardiac intervention following a rapid response. ICU to arrange ALS transport
[2024-11-27] MEDS: Digoxin 0.125 MG TABLET PO (11:11)
[2024-11-27] MEDS: Sennosides 8.6 MG TABLET PO (11:11)
[2024-11-27] MEDS: Apixaban 5 MG TABLET PO (11:12)
--- NOTE | 2024-11-27 12:05 | PC.NURSE ---
The patient arrived at the ICU approx. at 09:00 following an Rapid Response called in Telemetry due to VT & hypotension. Transferred to ICU for further management. Neuro: Alert and oriented Respiratory: On RA, Coarse breath sounds. Cardiac: Sinus Rhythm, on phenylephrine gtt and amiodarone gtt per AUG GI/: LBM? , +bowel sounds, NPO, POC Q6HR, on sliding scale insulin per AUG.? Lines: peripheral IVs Plan: Transfer to [facility].
[2024-11-27 12:06] LABS: Glucose, Whole Blood 146 mg/dL (60-115)
[2024-12-03 01:19] LABS: VITAMIN D (1,25 OH) D3 34 pg/mL; Vit D (1,25-Dihydroxy) Total 34 pg/mL (18-72); Vitamin D (1,25 OH) D2 <8 pg/mL
== END 2024-11-27 13:55 | disposition short-term general hospital (02) | DRG 312 ==
LOC: HO.ED 11-26 02:57 → HO.EDOVER 11-26 03:13 → HO.IMC 11-26 16:07 → HO.EDOVER 11-26 16:53 → HO.IMC 11-26 19:35 → HO.ICU 11-27 08:51
PROVIDERS: Internal Medicine; Nurse Practitioner Acute Care; Nurse Practitioner Family; Physician Assistant; Admitting Provider Nurse Practitioner Family; Emergency Provider Emergency Medicine; PCP Family Medicine; Visit Provider Internal Medicine Pulmonary Disease
DX: I95.1 Orthostatic hypotension (principal); I42.8 Other cardiomyopathies; I48.92 Unspecified atrial flutter; I50.20 Unspecified systolic (congestive) heart failure; I47.20 Ventricular tachycardia, unspecified; E87.20 Acidosis, unspecified; E86.0 Dehydration; E11.9 Type 2 diabetes mellitus without complications; Z20.822 Contact with and (suspected) exposure to COVID-19; F03.90 Unspecified dementia, unspecified severity, without behavioral disturbance, psychotic disturbance, mood disturbance, and anxiety; R63.4 Abnormal weight loss; K52.9 Noninfective gastroenteritis and colitis, unspecified; Z68.23 Body mass index [BMI] 23.0-23.9, adult; F17.210 Nicotine dependence, cigarettes, uncomplicated; Z71.6 Tobacco abuse counseling; Z86.711 Personal history of pulmonary embolism; Z86.718 Personal history of other venous thrombosis and embolism
CPT/HCPCS: 0241U; 36415; 71045; 71275; 74177; 80048; 80053; 80061; 80076; 80162; 81001; 82607; 82652; 82947; 83036; 83605; 83690; 83735; 83880; 84443; 84484; 85025; 85027; 85610; 86140; 86780; 87040; 87086; 93005; 93306; 93880; 99285; J0282; J0283; J1650; J2371; J2543; J3475; J7120; P9047; Q9957; Q9967

== ENCOUNTER → 2024-11-25 17:36 | Outpatient (BNV) | payer MEDICARE, MEDICAID, SELFPAY | PROVIDERS: Emergency Provider Emergency Medicine; Visit Provider Radiology Vascular & Interventional Radiology | DX: R55 Syncope and collapse (principal) | CPT/HCPCS: 71045 ==

== ENCOUNTER → 2024-11-25 17:36 | Outpatient (BNV) | payer MEDICARE, MEDICAID, SELFPAY | PROVIDERS: Admitting Provider Nurse Practitioner Family; Emergency Provider Emergency Medicine; Visit Provider Internal Medicine Cardiovascular Disease | DX: I44.7 Left bundle-branch block, unspecified (principal); R00.0 Tachycardia, unspecified | CPT/HCPCS: 93010 ==

== ENCOUNTER → 2024-11-26 00:12 | Outpatient (BNV) | payer MEDICARE, MEDICAID, SELFPAY | PROVIDERS: Emergency Provider Emergency Medicine; Visit Provider Radiology Diagnostic Radiology | DX: R14.0 Abdominal distension (gaseous) (principal); I95.9 Hypotension, unspecified; R55 Syncope and collapse | CPT/HCPCS: 71275; 74177; 93880 ==

== ENCOUNTER 2024-11-26 02:49 | Outpatient (BNV) | payer MEDICARE, MEDICAID, SELFPAY | END 2024-11-27 04:50 | PROVIDERS: Admitting Provider Nurse Practitioner Family; Emergency Provider Emergency Medicine; Visit Provider Internal Medicine Cardiovascular Disease | DX: I48.92 Unspecified atrial flutter (principal); I44.0 Atrioventricular block, first degree; I44.7 Left bundle-branch block, unspecified | CPT/HCPCS: 93010 ==

== ENCOUNTER → 2024-11-26 02:49 | Outpatient (BNV) | payer MEDICARE, MEDICAID, SELFPAY | PROVIDERS: Admitting Provider Nurse Practitioner Family; Emergency Provider Emergency Medicine; Visit Provider Internal Medicine Cardiovascular Disease | DX: I48.92 Unspecified atrial flutter (principal); I42.8 Other cardiomyopathies; R00.0 Tachycardia, unspecified | CPT/HCPCS: 93010; 93306; 99222; 99291 ==

== ENCOUNTER → 2024-11-26 02:49 | Outpatient (BNV) | payer MEDICARE, MEDICAID, SELFPAY | PROVIDERS: Admitting Provider Nurse Practitioner Family; Emergency Provider Emergency Medicine; Visit Provider Internal Medicine | DX: R55 Syncope and collapse (principal) | CPT/HCPCS: 99223; 99499 ==

== ENCOUNTER → 2024-11-26 02:49 | Outpatient (BNV) | payer MEDICARE, MEDICAID, SELFPAY | PROVIDERS: Admitting Provider Nurse Practitioner Family; Emergency Provider Emergency Medicine; Visit Provider Internal Medicine Pulmonary Disease | DX: R00.0 Tachycardia, unspecified (principal); I42.8 Other cardiomyopathies; I48.92 Unspecified atrial flutter | CPT/HCPCS: 99238 ==